=== PATIENT | male | born 1930 | race Caucasian/White ===

== ENCOUNTER 2017-01-03 17:28 | Outpatient (CLI) | payer MEDICARE, BC ==
[2017-01-03 18:19] LABS: Hematocrit 43.4 % (42.0-52.0); Red Blood Cell (RBC) Count 4.52 mill/uL (4.70-6.10); White Blood Cell (WBC) Count 5.6 thou/uL (4.8-10.8)
[2017-01-03 18:27] LABS: Prothrombin Time 16.7 SEC (12.0-14.7)
[2017-01-03 18:28] LABS: PTT 50.4 SEC (22.9-36.1)
[2017-01-03 18:39] LABS: Anion Gap 10 mmol/L (10-20); BUN (Urea Nitrogen) 21 mg/dL (8.4-25.7); Calc. Creatinine Clearance 0 mL/min (70-130); Calcium 9.6 mg/dL (7.8-10.44); Carbon Dioxide 24 mmol/L (23-31); Chloride 107 mmol/L (98-107); Estimated GFR-MDRD 51
== END 2017-01-03 17:29 | disposition home or self-care (01) ==
LOC: LABBT 17:28
PROVIDERS: ATTEND Internal Medicine Cardiovascular Disease
DX: Z01.818 Encounter for other preprocedural examination (principal); I35.0 Nonrheumatic aortic (valve) stenosis
CPT/HCPCS: 80048; 85027; 85610; 85730

== ENCOUNTER 2017-01-05 10:42 | Inpatient (IN) | payer MEDICARE, BC ==
[2017-01-05 11:20] LABS: #Eosinphils 0.1 thou/uL (0.0-0.7); #Lymphocytes 1.1 thou/uL (1.20-3.40); #Monocytes 0.6 thou/uL (0.11-0.59); #Neutrophils 6.3 thou/uL (1.40-6.50); %Basophils 0.2 % (0.0-1.0); %Lymphocytes 13.9 % (21.0-51.0); %Monocytes 6.9 % (0.0-10.0); Hematocrit 44.3 % (42.0-52.0); Mean Platelet Volume 8.2 fL (7.4-10.4); Red Blood Cell (RBC) Count 4.68 mill/uL (4.70-6.10)
[2017-01-05 11:47] LABS: ALT (SGPT) 11 U/L (8-55); AST (SGOT) 13 U/L (5-34); Alkaline Phosphatase 40 U/L (40-150); Anion Gap 14 mmol/L (10-20); BUN (Urea Nitrogen) 27 mg/dL (8.4-25.7); Bilirubin, Total 0.7 mg/dL (0.2-1.2); CK (CPK) 92 U/L (30-200); Calc. Creatinine Clearance 0 mL/min (70-130); Calcium 9.7 mg/dL (7.8-10.44); Carbon Dioxide 21 mmol/L (23-31); Chloride 108 mmol/L (98-107); Estimated GFR-MDRD 46; Globulin 2.8 g/dL (2.4-3.5); Protein, Total 6.8 g/dL (5.8-8.1)
--- NOTE | 2017-01-05 12:14 | RAD ---
PORTABLE CHEST 1 VIEW: Date: 01/05/17 Time: 1043 hours HISTORY: Cough. FINDINGS: Comparison made with exam of 03/02/09. The heart is enlarged. Left-sided pacemaker device remains in place. The aorta is tortuous. The lung s are well expanded without focal areas of consolidation, pneumothorax, delia pulmonary edema, or pl eural effusions. IMPRESSION: No acute process. POS: ELMO
[2017-01-05] MEDS ORDERED: ISOVUE-370 76%-LOCM 1 ML ONE (13:55)
--- NOTE | 2017-01-05 16:09 | CT ---
CTA CHEST WITH 3D VOLUME RENDERING: CLINICAL HISTORY: Cough. Hypoxia. Dyspnea. FINDINGS: No evidence of a focal filling defect of the pulmonary trunk or main pulmonary arteries. There is h eterogeneity of contrast bolus throughout the segmental and subsegmental pulmonary arterial branches , which could obscure distal emboli. Multifocal patchy alveolar opacification is present throughout each lung, involving all pulmonary lobes. There is no evidence of effusion or pneumothorax. Mild prominence of the thoracic lymph nodes are noted. There is diffuse vascular calcification. The aor ta is not reliably assessed on the basis of phase of enhancement. Trace pericardial fluid is presen t. Granulomatous calcifications are seen within the chest and abdomen. IMPRESSION: 1. No large, central pulmonary embolus. 2. Heterogeneity of contrast bolus at the segmental and subsegmental pulmonary branches does limit evaluation distally. 3. Multifocal alveolar consolidation bilaterally, which may be on the basis of atypical pneumonia o r, alternatively, scattered areas of alveolar edema. This could be further discerned with a clinica l exam. Radiographic imaging followup may also be obtained as necessary. POS: ELMO
[2017-01-05] MEDS ORDERED: Azithromycin 500 MG VIAL ONE (16:53)
[2017-01-05 17:14] LABS: Bilirubin Negative (Negative); Blood, Urine Trace (Negative); Glucose, Urine (Dipstick) Negative (Negative); Ketone, Urine Negative (Negative); Nitrite Negative (Negative); Protein, Urine (Dipstick) Negative (Neg-Trace); Urobilinogen 0.2 mg/dL (0.2-1.0)
[2017-01-05 17:16] LABS: Bacteria/HPF None Seen HPF (None Seen); Hyaline Casts/LPF 0-3 HYALINE CAST LPF (0-3 Hyaline); Squamous Epithelial 0-3 HPF (0-3); WBC/HPF 0-3 HPF (0-3)
[2017-01-05 17:21] LABS: Troponin I 0.051 ng/mL (< 0.028)
[2017-01-05] MEDS ORDERED: cefTRIAXone\\ROCEPHIN 1 GM VIAL ONE (18:14)
[2017-01-05] MEDS ORDERED: Acetaminophen 325 MG TAB PO PRN (18:52)
[2017-01-05] MEDS ORDERED: Ondansetron HCl/PF 4 MG/2 ML Vial IVP PRN (18:52)
[2017-01-05] MEDS ORDERED: Ondansetron ODT 4 MG TAB SL PRN (18:52)
[2017-01-05] MEDS ORDERED: Calcium Carbonate 500 MG ChewTAB PO PRN (19:09)
[2017-01-05] MEDS: Atorvastatin Calcium 20 MG TAB PO SCH (20:17)
[2017-01-05] MEDS: Doxazosin Mesylate 4 MG TAB PO SCH (20:17)
[2017-01-05] MEDS: Allopurinol 300 MG TAB PO SCH (20:17)
[2017-01-05] MEDS: Finasteride 5 MG TAB PO SCH (20:17)
[2017-01-05] MEDS: Sodium Chloride 0.9% 1,000 ML IV SCH (20:18)
[2017-01-05] MEDS: HYDROcodone/Acetaminophen 5/325 mg Tablet PO PRN ×2 (20:18→23:30)
[2017-01-05 20:50] VITALS: BMI 41.9
[2017-01-05] MEDS: Benzonatate 100 MG CAP PO PRN (23:32)
[2017-01-06] MEDS: Dabigatran 150 mg Capsule PO SCH ×3 (00:36→20:16)
--- NOTE | 2017-01-06 03:11 | HP ---
CHIEF COMPLAINT: Cough. HISTORY OF PRESENT ILLNESS: This is an 86-year-old pleasant gentleman who had cough for 5 days. Th e patient had also had some dyspnea on exertion. Denies any fever. Denies any history of blood jane ts. Denies any edema. The patient was doing better, but the cough got really bad and hence, he cam e into the hospital for further evaluation and treatment. A CT scan in the ER was done, which showe d multifocal pneumonia. The patient has been admitted for further evaluation and treatment of that. Of note, the patient is going to have an elective cardiac catheterization on the and also he is going to take care of his AV valve at that time. The patient denies any fever. Admits to cough, very little sputum production which is yellowish greenish in color. PAST MEDICAL HISTORY: Significant for hyperlipidemia, hypertension, aortic valve issues and benign prostatic hypertrophy. SOCIAL HISTORY: Does not smoke, drink or do recreational drugs. PAST SURGICAL HISTORY: Significant for bladder stone surgery, cholecystectomy, tonsillectomy, and p acemaker. FAMILY HISTORY: Negative for diabetes and hypertension. ALLERGIES: No known drug allergies. MEDICATIONS: Please see MAR. REVIEW OF SYSTEMS: Significant for no fever, no chills, no headache, no appetite, no hearing loss a nd no latencies. Some shortness of breath when he came in he had room air of 88%. No chest pain, n o diarrhea, dysuria, or polyuria. No memory or mood changes. No neck pain. PHYSICAL EXAMINATION: VITAL SIGNS: Blood pressure is 153/83, respirations 19, temperature 98.2, pulse is 92, right now sa tting 98% on 2 liters. GENERAL: The patient is lying in bed in no apparent distress. HEENT: Atraumatic, normocephalic. Pupils equally round, reactive to light. Extraocular movements intact. Mucous membranes moist. NECK: Supple. No JVD. CHEST: Some bibasilar coarse breath sounds. HEART: S1, S2 normal. No murmurs or gallops. ABDOMEN: Soft, obese. EXTREMITIES: No cyanosis, clubbing, edema. Distal pulses present. NEUROLOGIC: Alert, awake, oriented. No cranial deficits. No sensorimotor deficits. LABORATORY DATA: Potassium is 4.4, creatinine is 1.45. LFTs normal. WBC count is 8, hemoglobin is 14, platelets 166. The patient's CT scan shows multifocal pneumonia, shows no pulmonary embolus, m ultifocal alveolar consolidation, bilateral. ASSESSMENT AND PLAN: 1. Multifocal pneumonia on CT scan with cough. We will do sputum culture, blood culture. IV antib iotics, Rocephin and Zithromax, neb treatments and give the patient some cough suppressants. 2. Cough secondary to pneumonia. We will do symptomatic treatment. 3. Hyperlipidemia. Continue home medications. 4. Hypertension. Continue home medications. 5. History of paroxysmal atrial fibrillation. Pradaxa was stopped by Dr. Villavicencio as the patient is going to go for surgery and the cardiac catheterization on . 6. Acute renal failure. We will gently hydrate the patient and monitor labs. 7. Sequential compression devices for deep venous thrombosis prophylaxis. Please note EKG shows paced rhythm. Status post pacemaker with paced rhythm. I will follow the lab s and do the need for.
[2017-01-06 04:55] LABS: #Lymphocytes 1.2 thou/uL (1.20-3.40); #Monocytes 1.1 thou/uL (0.11-0.59); #Neutrophils 11.5 thou/uL (1.40-6.50); %Basophils 0.1 % (0.0-1.0); %Eosinophils 0.1 % (0.0-10.0); %Monocytes 7.7 % (0.0-10.0); Hematocrit 39.7 % (42.0-52.0); Mean Platelet Volume 8.4 fL (7.4-10.4); Red Blood Cell (RBC) Count 4.17 mill/uL (4.70-6.10); White Blood Cell (WBC) Count 13.8 thou/uL (4.8-10.8)
[2017-01-06 05:12] LABS: Anion Gap 9 mmol/L (10-20); BUN (Urea Nitrogen) 29 mg/dL (8.4-25.7); Calc. Creatinine Clearance 66 mL/min (70-130); Calcium 9.1 mg/dL (7.8-10.44); Carbon Dioxide 25 mmol/L (23-31); Chloride 108 mmol/L (98-107); Estimated GFR-MDRD 44
--- NOTE | 2017-01-06 07:47 | HP ---
CHIEF COMPLAINT: Cough HISTORY OF PRESENT ILLNESS: The patient denies any fever or chills. The patient said he was appare ntly well until 5 days back and he developed this cough. He is going to have cardiac catheterizatio n to be done on by Dr. Villavicencio and so the Pradaxa was stopped, but he developed this cough, whic h progressively got worse and hence came into the hospital for further evaluation and treatment. No fever, no chills. No chest pain. No diarrhea, dysuria, or polyuria. PAST MEDICAL HISTORY: Significant for hyperlipidemia, hypertension, aortic valve issues, BPH. SOCIAL HISTORY: Does not smoke, drink, or do recreational drugs. PAST SURGICAL HISTORY: Bladder stone surgery, cholecystectomy, tonsillectomy, and pacemaker. FAMILY HISTORY: Negative for diabetes and hypertension. ALLERGIES: No known drug allergies. MEDICATIONS: Please see MAR. REVIEW OF SYSTEMS: As mentioned in the HPI, otherwise no fever, no chills, no headache, . No diarrhea, dysuria, or polyuria. No memory or mood changes. PHYSICAL EXAMINATION: VITAL SIGNS: Blood pressure is 150/83, temperature is afebrile, breathing at 19, pulse is 92, satti ng 98% on room air. On 2 L patient was satting 88% on room air. GENERAL: Patient is lying in bed, in no apparent distress. HEENT: Atraumatic and normocephalic. Pupils are equally round and reactive to light. Extraocular movements intact. Mucous membranes are moist. NECK: Supple. No JVD. CHEST: Coarse breath sounds on the bases. HEART: S1 and S2. No murmurs or gallops. ABDOMEN: Soft. EXTREMITIES: No cyanosis, clubbing, or edema. Distal pulses present. NEUROLOGIC: Alert, awake, oriented. No cranial deficits. No sensorimotor deficits. LABORATORY DATA AND DIAGNOSTICS: CT scan shows multifocal pneumonia. Potassium is 4.4, creatinine is 1.45. LFT, normal. WBC count is 8, hemoglobin is 14. BNP is 226. ASSESSMENT AND PLAN: 1. Multifocal pneumonia. We will put the patient on pneumonia protocol, blood cultures, sputum cul tures, flu test, IV antibiotics with Rocephin and Zithromax. Monitor and follow the cultures and op timize the treatment. 2. Hyperlipidemia, stable. Hypertension, stable. Continue home medications. 3. Chronic atrial fibrillation, patient's Pradaxa has been stopped. Patient is status post pacemak er. EKG has paced rhythm as well acute renal failure, possibly secondary to dehydration. We will g ently hydrate the patient and follow creatinine. 4. Sequential compression devices for deep venous thrombosis prophylaxis. I will follow the labs a nd do the need for.
[2017-01-06] MEDS: Nebivolol HCl 5 MG TAB PO SCH (07:55)
[2017-01-06] MEDS: Benzonatate 100 MG CAP PO PRN ×2 (10:28→19:34)
--- NOTE | 2017-01-06 12:10 | PDOC.PN ---
- Subjective Encounter Start Date: 01/06/17 Encounter Start Time: 12:00 Subjective: f/u for bilateral pneumonia noted on CT chest. Feels a little better but -: still with coughing. No fever. No prior hx of pneumonia. Tx with Rocephin -: and Zithromax. - Objective MAR Reviewed: Yes Vital Signs & Weight: Vital Signs (12 hours) Temp Pulse Resp BP Pulse Ox 01/06/17 11:51 93 L 01/06/17 11:46 82 16 01/06/17 11:15 97.8 F 90 20 112/55 L 01/06/17 08:00 98.9 F 88 24 H 01/06/17 07:11 97.7 F 89 20 111/53 L 93 L 01/06/17 04:02 98.9 F 88 24 H 106/52 L 93 L Weight Weight 292 lb 4 oz I&O: 01/05/17 01/06/17 01/07/17 06:59 06:59 06:59 Intake Total 817 240 Balance 817 240 Result Diagrams: 01/06/17 03:51 01/06/17 03:51 Additional Labs: Microbiology 01/05/17 19:55 Nasal swab Influenza Types A,B Direct EIA - Final 01/05/17 19:29 Venous blood - Left Hand Blood Culture - Preliminary Specimen has been received and culture in progress. No Growth to date. 01/05/17 11:06 Venous blood - Left Hand Blood Culture - Preliminary Specimen has been received and culture in progress. No Growth to date. Laboratory Tests 01/05/17 01/05/17 01/05/17 11:06 11:06 11:06 Neutrophils % 78.0 H BUN 27 H Creatinine 1.45 H B-Natriuretic Peptide 261.6 H 01/06/17 03:51 Neutrophils % 83.1 H BUN Creatinine B-Natriuretic Peptide Radiology Reviewed by me: Yes (CT chest - multifocal infiltrates, no PE) EKG Reviewed by me: Yes (Tele - SR in 80's) Phys Exam - Physical Examination Constitutional: NAD HEENT: PERRLA, oral pharynx no lesions Neck: no JVD, supple coarse scattered sounds in bases II/ SANCHO in RUSB Cardiovascular: RRR Gastrointestinal: soft, non-tender, no distention, positive bowel sounds Musculoskeletal: no edema, pulses present Neurological: normal sensation, moves all 4 limbs Psychiatric: A&O x 3 Skin: normal turgor, cap refill <2 seconds Dx/Plan (1) Bilateral pneumonia Code(s): J18.9 - PNEUMONIA, UNSPECIFIED ORGANISM Status: Acute Comment: Bilateral involvement, suspect gm+ cocci, change Rocephin 2gm IV daily, Zithromax 500mg IV daily, Duonebs q4h, antitussive agents (2) 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 valve Code(s): Q23.1 - CONGENITAL INSUFFICIENCY OF AORTIC VALVE Status: Chronic Comment: Plan for cardiac cath 01/10/17 but will have to be postponed until pneumonia clears, resume Pradaxa 150mg BID (3) Chronic anticoagulation Code(s): Z79.01 - SENIOR PROCESS CONTROL TECH (CURRENT) USE OF ANTICOAGULANTS Status: Chronic Comment: See above (4) CKD (chronic kidney disease) stage 3, GFR 30-59 ml/min Code(s): N18.3 - CHRONIC KIDNEY DISEASE, STAGE 3 (MODERATE) Status: Chronic Comment: Avoid nephrotoxic meds and contrast media, repeat creatinine in am (5) Morbid obesity Code(s): E66.01 - MORBID (SEVERE) OBESITY DUE TO EXCESS CALORIES Status: Chronic - Plan continue antibiotics, out of bed/ambulate, DVT proph w/SCDs Stable currently -: Change Rocephin 2gm IV q24h -: Continue Zithromax 500mg IV daily -: Await final blood cx results -: Saline lock IVF's * Convert to inpt status * Resume Pradaxa 150mg BID * AM lab: BMP, CBC
[2017-01-06] MEDS: Sodium Chloride 0.9% 1,000 ML IV SCH (13:17)
[2017-01-06] MEDS ORDERED: guaiFENesin/Dextromethorphan 10 ML UDCUP PO PRN (14:32)
[2017-01-06] MEDS: Azithromycin 500 MG, Admixture Fee 1 EACH in Sodium Chloride 0.9% 250 ML 250 ML IVPB SCH (16:00)
[2017-01-06] MEDS: ADMIXTURE FEE IVPB SCH (17:22)
[2017-01-06] MEDS: CEFTRIAXONE ROCEPHIN IVPB SCH (17:22)
[2017-01-06] MEDS: SODIUM CHLORIDE IVPB SCH (17:22)
[2017-01-06] MEDS ORDERED: cefTRIAXone\\ROCEPHIN 1 GM, Admixture Fee 1 EACH in Sodium Chloride 0.9% 100 ML IVPB SCH (18:00)
--- NOTE | 2017-01-06 19:50 | CON ---
DATE OF CONSULTATION: 01/06/2017 CARDIOLOGY CONSULTATION REASON FOR CONSULTATION: Aortic stenosis. HISTORY OF PRESENT ILLNESS: Mr. Dobbs is a very pleasant 86-year-old white gentleman, a patient of Dr. Robert Villavicencio, who comes to the hospital for increased cough. He had evaluation in the ER and w as found to have multifocal pneumonia, so he was admitted for antibiotics and treatment of this. He states that for the last 5 days he has been noticing increased shortness of breath with exertion as well as cough that has been getting worse, productive of yellow sputum. He has been started on IV antibiotics. He actually is being followed by Dr. Villavicencio for aortic stenosis and was diagnosed with severe aortic stenosis and actually had a heart catheterization planned for this coming week on Sun. He also has a history of atrial fibrillation and he is on anticoagulation for that and this had been started being held today. Cardiology is being consulted for further recommendations in [facility] area. Currently, Mr. Dobbs denies any chest pain, tightness, or pressure. Denies any syncope or presyncope. PAST MEDICAL HISTORY: 1. Hyperlipidemia. 2. Hypertension. 3. Severe aortic stenosis. 4. Benign prostatic hypertrophy. SOCIAL HISTORY: No alcohol, tobacco or drugs. PAST SURGICAL HISTORY: 1. Bladder stone removal. 2. Cholecystectomy. 3. Tonsillectomy. 4. Pacemaker placement. FAMILY HISTORY: Noncontributory. OUTPATIENT MEDICATIONS: Include: 1. Pradaxa. 2. Allopurinol. 3. Lipitor. 4. Bystolic. 5. Multivitamin. 6. Proscar. 7. Doxazosin. ALLERGIES: No known drug allergies. REVIEW OF SYSTEMS: Twelve point review of systems was done and is all negative unless stated in the history of present illness.. PHYSICAL EXAMINATION: VITAL SIGNS: Temperature 98.0, pulse 82, respiration rate 17, satting 92% on 4 liters, blood pressu re 110/54. GENERAL: Awake, alert, oriented x3, in no distress. HEENT: Normocephalic, atraumatic. NECK: Supple. LUNGS: Have reduced breath sounds bilaterally. CARDIOVASCULAR: S1, S2. There is a grade 3/6 systolic murmur mid to late peaking on the right uppe r sternal border related to the rest of the precordium. ABDOMEN: Soft. EXTREMITIES: Trace edema. SKIN: Warm and dry. LABORATORY WORK: Reviewed. CBC with a white count of 13, hemoglobin of 13, hematocrit of 39, and p latelet count of 149. Chemistries with a creatinine of 1.4, increasing to 1.5; BUN of 29, GFR of 44 . Troponin was 0.05 x1. BNP was 261. UA showed trace blood, moderate amount of leukocyte esterase . IMAGING: Chest x-ray showed no acute process. CT of the chest shows bilateral pneumonias. ASSESSMENT AND PLAN: 1. Community-acquired pneumonia. 2. Severe aortic stenosis. PLAN: 1. IV antibiotics per primary team. 2. Plan for heart catheterization is currently on hold due to his acute process at this time. We w ould recommend restarting the Pradaxa to protect him from the stroke in the setting of paroxysmal at rial fibrillation. He will have to have his right and left heart catheterization rescheduled to a l ater date. 3. We will continue to follow.
[2017-01-06] MEDS: Doxazosin Mesylate 4 MG TAB PO SCH (20:16)
[2017-01-06] MEDS: Finasteride 5 MG TAB PO SCH (20:16)
[2017-01-06] MEDS: Atorvastatin Calcium 20 MG TAB PO SCH (20:16)
[2017-01-06] MEDS: Allopurinol 300 MG TAB PO SCH (20:16)
[2017-01-07 05:07] LABS: Hematocrit 38.4 % (42.0-52.0)
[2017-01-07 05:19] LABS: Anion Gap 9 mmol/L (10-20); BUN (Urea Nitrogen) 28 mg/dL (8.4-25.7); Calc. Creatinine Clearance 68 mL/min (70-130); Calcium 9.3 mg/dL (7.8-10.44); Carbon Dioxide 25 mmol/L (23-31); Chloride 108 mmol/L (98-107); Estimated GFR-MDRD 45
[2017-01-07 06:03] LABS: Band 1 % (5-11); Mean Platelet Volume 8.7 fL (7.4-10.4); Neutrophil 80 % (42-75); Red Blood Cell (RBC) Count 4.07 mill/uL (4.70-6.10); White Blood Cell (WBC) Count 9.2 thou/uL (4.8-10.8)
[2017-01-07] MEDS: Dabigatran 150 mg Capsule PO SCH ×2 (09:00→21:16)
[2017-01-07] MEDS: Nebivolol HCl 5 MG TAB PO SCH (09:01)
[2017-01-07] MEDS: Multivitamin W/ Minerals 1 TAB PO SCH (09:01)
--- NOTE | 2017-01-07 10:26 | PDOC.PN ---
- Subjective Encounter Start Date: 01/07/17 Encounter Start Time: 10:24 Patient seen and examined. No new complaints. No overnight events. feels much better. coughing less. No fever or chills. sob on exertion getting worse from baseline lately. No chest pain or palpitation. - Objective MAR Reviewed: Yes Vital Signs & Weight: Vital Signs (12 hours) Temp Pulse Resp BP Pulse Ox 01/07/17 09:08 98.2 F 75 18 128/59 L 93 L 01/07/17 06:47 97 01/07/17 06:44 67 16 01/07/17 04:00 98.4 F 90 18 129/62 94 L 01/07/17 00:00 98.6 F 90 18 107/51 L 94 L 01/06/17 23:16 93 L Weight Weight 293 lb I&O: 01/06/17 01/07/17 01/08/17 06:59 06:59 06:59 Intake Total 1750 Output Total 620 Balance 1130 Result Diagrams: 01/07/17 04:12 01/07/17 04:12 Radiology Reviewed by me: Yes Phys Exam - Physical Examination Constitutional: NAD HEENT: sclera anicteric Neck: supple Respiratory: no wheezing, no rales systolic murmur present Cardiovascular: irregular Gastrointestinal: soft Musculoskeletal: no edema Neurological: non-focal, moves all 4 limbs Psychiatric: normal affect, A&O x 3 Skin: no rash Dx/Plan (1) Severe aortic stenosis Code(s): I35.0 - NONRHEUMATIC AORTIC (VALVE) STENOSIS Status: Chronic (2) CAD (coronary artery disease) Code(s): I25.10 - ATHSCL HEART DISEASE OF [place] CORONARY ARTERY W/O ANG PCTRS Status: Chronic (3) Chronic a-fib Code(s): I48.2 - CHRONIC ATRIAL FIBRILLATION Status: Chronic (4) Bilateral pneumonia Code(s): J18.9 - PNEUMONIA, UNSPECIFIED ORGANISM Status: Acute Comment: Bilateral involvement, suspect gm+ cocci, change Rocephin 2gm IV daily, Zithromax 500mg IV daily, Duonebs q4h, antitussive agents (5) CKD (chronic kidney disease) stage 3, GFR 30-59 ml/min Code(s): N18.3 - CHRONIC KIDNEY DISEASE, STAGE 3 (MODERATE) Status: Chronic Comment: Avoid nephrotoxic meds and contrast media, repeat creatinine in am (6) Chronic anticoagulation Code(s): Z79.01 - REAGENT TENDER HELPER (CURRENT) USE OF ANTICOAGULANTS Status: Chronic Comment: See above (7) Morbid obesity Code(s): E66.01 - MORBID (SEVERE) OBESITY DUE TO EXCESS CALORIES Status: Chronic - Plan cont current plan of care, continue antibiotics, out of bed/ambulate, DVT proph w/SCDs * . continue rocephin and zithromax feeling better. WBC count better No fever cultures negative AM labs. cardiac cath postponed and restarted on pradaxa Appreciate cardio input. continue Tele monitoring Dc home in 24 hrs if stable.
[2017-01-07 11:16] LABS: #Lymphocytes 0.8 thou/uL (1.20-3.40); #Monocytes 0.7 thou/uL (0.11-0.59); #Neutrophils 6.8 thou/uL (1.40-6.50); %Basophils 0.1 % (0.0-1.0); %Eosinophils 0.2 % (0.0-10.0); %Monocytes 8.5 % (0.0-10.0); Hematocrit 37.7 % (42.0-52.0); Mean Platelet Volume 8.3 fL (7.4-10.4); Red Blood Cell (RBC) Count 3.95 mill/uL (4.70-6.10); White Blood Cell (WBC) Count 8.3 thou/uL (4.8-10.8)
[2017-01-07] MEDS: Azithromycin 500 MG, Admixture Fee 1 EACH in Sodium Chloride 0.9% 250 ML 250 ML IVPB SCH (16:38)
--- NOTE | 2017-01-07 17:56 | PDOC.CTH ---
Cardiology Progress Note - Subjective He is doing much better. Breathing is improved. On room air now. - Objective Vital Signs Temp Pulse Resp BP BP Pulse Ox 01/07/17 15:15 98.2 F 82 28 H 112/65 91 L 01/07/17 14:29 59 L 16 01/07/17 12:20 97.8 F 87 28 H 114/58 L 92 L 01/07/17 10:46 89 16 01/07/17 09:08 98.2 F 75 18 128/59 L 93 L 01/07/17 09:05 98.2 F 89 16 93 L 01/07/17 06:47 97 01/07/17 06:44 67 16 Weight 293 lb 01/06/17 01/07/17 01/08/17 06:59 06:59 06:59 Intake Total 1750 Output Total 620 Balance 1130 - Physical Examination General/Neuro: alert & oriented x3, NAD Neck: no JVD present Lungs: unlabored respirations Heart: RRR Abdomen: NT/ND Extremities: other: (no edema.) - Telemetry Telemetry Rhythm: NSR - Labs Result Diagrams: 01/07/17 10:56 01/07/17 04:12 Troponin/CKMB CK-MB (CK-2) 1.9 ng/mL (0-6.6) 01/05/17 11:06 Troponin I 0.051 ng/mL (< 0.028) H 01/05/17 11:06 - Assessment/Plan 1. Pneumonia 2. Severe 3. Paroxysmal Afib. PLAn: - Continue therapies for pneumonia. - Continue Pradaxa for stroke prophylaxis. On BB. - Would hold off on doing any invasive procedure for now until better from pneumonia stand point.
[2017-01-07] MEDS: Benzonatate 100 MG CAP PO PRN (17:57)
[2017-01-07] MEDS: HYDROcodone/Acetaminophen 5/325 mg Tablet PO PRN (17:57)
[2017-01-07] MEDS: Guaifenesin DM 100-10/5 ML UDCUP PO PRN (18:17)
[2017-01-07] MEDS: ADMIXTURE FEE IVPB SCH (18:18)
[2017-01-07] MEDS: CEFTRIAXONE ROCEPHIN IVPB SCH (18:18)
[2017-01-07] MEDS: SODIUM CHLORIDE IVPB SCH (18:18)
[2017-01-07] MEDS: Doxazosin Mesylate 4 MG TAB PO SCH (21:16)
[2017-01-07] MEDS: Allopurinol 300 MG TAB PO SCH (21:17)
[2017-01-07] MEDS: Atorvastatin Calcium 20 MG TAB PO SCH (21:17)
[2017-01-07] MEDS: Finasteride 5 MG TAB PO SCH (21:17)
[2017-01-08] MEDS: Guaifenesin DM 100-10/5 ML UDCUP PO PRN (00:03)
[2017-01-08 06:32] LABS: Anion Gap 10 mmol/L (10-20); BUN (Urea Nitrogen) 24 mg/dL (8.4-25.7); Calc. Creatinine Clearance 79 mL/min (70-130); Calcium 9.4 mg/dL (7.8-10.44); Carbon Dioxide 25 mmol/L (23-31); Chloride 107 mmol/L (98-107); Estimated GFR-MDRD 54
[2017-01-08] MEDS ORDERED: Diprivan 0 ML ONE (07:14)
[2017-01-08 08:43] VITALS: BP 121/57; TEMP 98.2
[2017-01-08] MEDS: Dabigatran 150 mg Capsule PO SCH (08:44)
[2017-01-08] MEDS: Nebivolol HCl 5 MG TAB PO SCH (08:44)
[2017-01-08] MEDS: Multivitamin W/ Minerals 1 TAB PO SCH (08:44)
[2017-01-08] MEDS ORDERED: Furosemide 40 MG/4 ML VIAL SLOW IVP SCH (09:15)
--- NOTE | 2017-01-08 09:32 | PRG ---
DATE OF SERVICE: 01/08/2017 Mr. Dobbs says he is feeling better. He says he is still coughing, although it has improved. He sa id he had a yellow productive cough previously. He has no fever. PHYSICAL EXAMINATION: VITAL SIGNS: Blood pressure 121/57, pulse is 90, it is regular. LUNGS: Clear. CARDIAC: Normal S1, normal S2. ABDOMEN: Soft, nontender. EXTREMITIES: There is only mild edema. ASSESSMENT: 1. Multifocal infiltrates, probably pneumonia, but always concern this could be heart failure. 2. Aortic stenosis, severe. PLAN: 1. We will give him a single dose of Lasix. 2. Continue antibiotics. 3. We will continue to follow with you. Ultimately, will need a cardiac catheterization and a miles scutaneous aortic valve replacement is the ultimate goal.
--- NOTE | 2017-01-08 10:00 | PDOC.PN ---
- Subjective Encounter Start Date: 01/08/17 Encounter Start Time: 09:58 Patient seen and examined. No new complaints. No overnight events. cough better No chest pain wants to go home. - Objective MAR Reviewed: Yes Vital Signs & Weight: Vital Signs (12 hours) Temp Pulse Resp BP Pulse Ox 01/08/17 08:00 98.2 F 90 20 121/57 L 92 L 01/08/17 07:36 92 L 01/08/17 07:34 88 18 92 L 01/08/17 04:00 98.1 F 85 18 106/54 L 85 L 01/08/17 00:00 98.2 F 73 20 122/59 L 97 01/07/17 22:56 95 Weight Weight 292 lb 9.6 oz I&O: 01/07/17 01/08/17 01/09/17 06:59 06:59 06:59 Intake Total 1750 1300 Output Total 620 800 Balance 1130 500 Result Diagrams: 01/07/17 10:56 01/08/17 05:24 Phys Exam - Physical Examination Constitutional: NAD HEENT: sclera anicteric Neck: supple Respiratory: no wheezing, no rales Cardiovascular: RRR systolic murmur present Gastrointestinal: soft Musculoskeletal: no edema Neurological: non-focal, moves all 4 limbs Skin: no rash Dx/Plan (1) Severe aortic stenosis Code(s): I35.0 - NONRHEUMATIC AORTIC (VALVE) STENOSIS Status: Chronic (2) CAD (coronary artery disease) Code(s): I25.10 - ATHSCL HEART DISEASE OF [place] CORONARY ARTERY W/O ANG PCTRS Status: Chronic (3) Chronic a-fib Code(s): I48.2 - CHRONIC ATRIAL FIBRILLATION Status: Chronic (4) Bilateral pneumonia Code(s): J18.9 - PNEUMONIA, UNSPECIFIED ORGANISM Status: Acute Comment: Bilateral involvement, suspect gm+ cocci, change Rocephin 2gm IV daily, Zithromax 500mg IV daily, Duonebs q4h, antitussive agents (5) CKD (chronic kidney disease) stage 3, GFR 30-59 ml/min Code(s): N18.3 - CHRONIC KIDNEY DISEASE, STAGE 3 (MODERATE) Status: Chronic Comment: Avoid nephrotoxic meds and contrast media, repeat creatinine in am (6) Chronic anticoagulation Code(s): Z79.01 - NUT SHELLER (CURRENT) USE OF ANTICOAGULANTS Status: Chronic Comment: See above (7) Morbid obesity Code(s): E66.01 - MORBID (SEVERE) OBESITY DUE TO EXCESS CALORIES Status: Chronic - Plan * . DC home today Levaquin for 5 more days. f/u with PCP in one week.
--- NOTE | 2017-01-08 19:51 | DIS ---
DATE OF ADMISSION: 01/05/2017 DATE OF DISCHARGE: 01/08/2017 DISCHARGE DIAGNOSES: Multifocal pneumonia, hyperlipidemia, chronic atrial fibrillation, severe aort ic stenosis, coronary artery disease, chronic kidney disease stage 3, chronic anticoagulation, and m orbid obesity. CONSULTATIONS: Dr. Rodriguez from Cardiology and Dr. Villavicencio. PROCEDURES: None. HOSPITAL COURSE: This is an 86-year-old male, who was admitted with history of coronary artery dise ase and chronic atrial fibrillation, who came to the hospital with cough and was found to have multi focal pneumonia and was started on antibiotics with significant improvement. The patient will be di scharged on levofloxacin. The patient was also have a heart catheterization, which was postponed du e to the acute process, and Cardiology also evaluated and he was deemed appropriate to discharge jaime e with followup as outpatient. DISCHARGE MEDICATIONS: Pradaxa 150 p.o. b.i.d., allopurinol 300 mg at bedtime, Lipitor p.o. a t bedtime, and Bystolic. Proscar 5 mg p.o. at bedtime, Levaquin 750 mg daily for 5 more days, Pradaxa 150 p.o. b.i.d. CONDITION ON DISCHARGE: Stable. DISCHARGE DISPOSITION: To home. DISCHARGE INSTRUCTIONS: Follow up with primary care physician in 1 week. Follow up with Cardiology in 1 to 2 weeks. If no significant improvement in shortness of breath, the patient might need to s tart on some Lasix also, Cardiology is aware.
== END 2017-01-08 11:47 | disposition home or self-care (01) | DRG 194 ==
LOC: ERS 10:42 → 2SW 17:00 → OBSVTOIN 01-06 12:07 → 2NO 01-06 13:20
PROVIDERS: ADMIT Internal Medicine; ATTEND Internal Medicine
DX: J18.9 Pneumonia, unspecified organism (principal); N17.9 Acute kidney failure, unspecified; I48.0 Paroxysmal atrial fibrillation; Z68.41 Body mass index [BMI] 40.0-44.9, adult; E86.0 Dehydration; I35.0 Nonrheumatic aortic (valve) stenosis; I12.9 Hypertensive chronic kidney disease with stage 1 through stage 4 chronic kidney disease, or unspecified chronic kidney disease; E78.5 Hyperlipidemia, unspecified; Z95.2 Presence of prosthetic heart valve; E66.01 Morbid (severe) obesity due to excess calories; N18.3 Chronic kidney disease, stage 3 (moderate); Z95.0 Presence of cardiac pacemaker; Z79.01 Long term (current) use of anticoagulants
CPT/HCPCS: 36415; 71010; 71275; 80048; 80053; 81003; 81015; 82550; 82553; 83880; 84484; 85007; 85025; 85027; 87040; 87070; 87205; 93005; 94640; 96365; 96374; A4216; J0456; J0696; J1940; J2704; J7050; J7620

== ENCOUNTER 2017-06-26 09:19 | Day surgery (SDC) | payer MEDICARE, BC ==
[2017-06-19 13:40] VITALS: BMI 42.3
[2017-06-26] MEDS ORDERED: CEFAZOLIN/Water 2 GM/20 ML SYRINGE SLOW IVP SCH (10:15)
[2017-06-26] MEDS ORDERED: Iothalamate Meglumine 60% 50 ML VIAL FS ONE (11:38)
[2017-06-26] MEDS ORDERED: CEFAZOLIN/Water 2 GM/20 ML SYRINGE ONE (11:46)
[2017-06-26] MEDS ORDERED: PROPOFOL 200 MG/20 ML VIAL ONE (13:20)
--- NOTE | 2017-06-26 15:12 | OP ---
DATE OF PROCEDURE: 06/26/2017 PREOPERATIVE DIAGNOSIS: Bladder tumor. POSTOPERATIVE DIAGNOSIS: Bladder tumor. PROCEDURES: Transurethral resection of bladder tumor measuring 2-3 cm and a smaller tumor measuring less than a cm, as well as bladder biopsies, fulguration and mitomycin instillation. SURGEON: Priya Morris MD ANESTHESIA: General with laryngeal mask airway. FINDINGS: Adequate resection of an anterior dome tumor as well as a much smaller superficial tumor next to the right UO. No complications. Specimens were bladder biopsies, which were right and left wall, posterior wall, trigone and dome, as well as the bladder tumor next to the right UO and finally the bladder tumor at the dome, which included deep tissue, so a base was not taken separately, DRAIN: 18-Lao Mckeon, clamped at the end of the case. ESTIMATED BLOOD LOSS: Minimal. INDICATIONS: The patient is an 86-year-old gentleman, who was found to have what appeared to be a superficial bladder tumor, but had significant heart issues and underwent an endoscopic vascular replacement of his valve and he did very well and was cleared for resection of his bladder tumor. DESCRIPTION OF PROCEDURE: The patient was brought into the room by Anesthesia, placed on the table in supine position. After receiving general anesthetic, legs were placed in lithotomy position and his perineum was prepped and draped in sterile fashion. Using a 22-Lao cystoscope and a 30-degree lens, urethra was traversed and the bladder inspected. The UO's were noted and there was a small superficial appearing tumor medial to the right UO and then there was the known dome tumor with some papillary components that measured between 2 and 3 cm. A 70-degree lens was used to ensure no other lesions were noted, and then the cold cup biopsy was used to obtain the biopsies and the random spots, as well as remove the bladder tumor next to the right UO. Once these were performed then the resectoscope was placed in and all of the biopsy sites were then fulgurated, taking care not to get too close to the UO. I did not feel a stent was needed at this time as the orifice itself was not affected by the cautery and we stayed medial to it. Then, attention was turned to the anterior dome, where pressure was required the entire time for both adequately resecting and fulgurating it. Muscle was easily seen as well as a very small amount of fat and the tumor was elicked out and then the base was fulgurated with a loop with a decompressed bladder and no bleeding was noted other than near the prostate. The bladder neck was then further fulgurated. The resectoscope was removed and then an 18-Lao Mckeon was placed to further drain all the bladder contents before 40 mg of mitomycin was instilled and clamped. It would be indwelling for the next hour and drained in the PACU. KIND
[2017-06-26] MEDS ORDERED: B & O ONE (16:06)
== END 2017-06-26 19:13 | disposition home or self-care (01) ==
LOC: SDC 09:19
PROVIDERS: ATTEND Urology
PROC: 0TBB8ZX Excision of Bladder, Via Natural or Artificial Opening Endoscopic, Diagnostic (ICD-10-PCS; principal; 2017-06-26)
PROC: 0TBB8ZX Excision of Bladder, Via Natural or Artificial Opening Endoscopic, Diagnostic (ICD-10-PCS; 2017-06-26)
DX: C67.1 Malignant neoplasm of dome of bladder (principal); I48.0 Paroxysmal atrial fibrillation; I25.10 Atherosclerotic heart disease of native coronary artery without angina pectoris; G47.33 Obstructive sleep apnea (adult) (pediatric); E78.00 Pure hypercholesterolemia, unspecified; N40.1 Benign prostatic hyperplasia with lower urinary tract symptoms; R33.8 Other retention of urine; I10 Essential (primary) hypertension; M10.9 Gout, unspecified; Z86.73 Personal history of transient ischemic attack (TIA), and cerebral infarction without residual deficits; Z87.891 Personal history of nicotine dependence; Z79.01 Long term (current) use of anticoagulants; Z79.82 Long term (current) use of aspirin; Z79.899 Other long term (current) drug therapy; Z95.0 Presence of cardiac pacemaker; Z98.890 Other specified postprocedural states; Z99.89 Dependence on other enabling machines and devices
CPT/HCPCS: 52204; 52235; 88305; J9280; J2704; J7050; Q9961

== ENCOUNTER 2017-07-01 10:47 | Emergency (ER) | payer MEDICARE, BC ==
[2017-07-01 12:39] LABS: Bilirubin Negative (Negative); Blood, Urine Large (Negative); Clarity CLOUDY (Clear); Glucose, Urine (Dipstick) Negative (Negative); Leukocyte Small (Negative); Nitrite Negative (Negative); Protein, Urine (Dipstick) Trace mg/dL (Neg-Trace); Specific Gravity, Urine 1.011 (1.002-1.036); Urobilinogen 0.2 mg/dL (0.2-1.0); pH, Urine 6.5 (5.0-9.0)
[2017-07-01 12:46] LABS: Bacteria/HPF None Seen HPF (None Seen); Hyaline Casts/LPF 0-3 HYALINE CAST LPF (0-3 Hyaline); Pathc Cast-AUWi Flag 0.43 (0-2.49); RBC/HPF GREATER THAN 50-TNTC HPF (0-3); Squamous Epithelial None Seen HPF (0-3); WBC/HPF 0-3 HPF (0-3)
[2017-07-01 12:56] LABS: #Eosinphils 0.2 thou/uL (0.0-0.7); #Monocytes 0.4 thou/uL (0.11-0.59); #Neutrophils 2.6 thou/uL (1.40-6.50); %Basophils 0.6 % (0.0-1.0); %Eosinophils 5.6 % (0.0-10.0); %Lymphocytes 23.5 % (21.0-51.0); %Neutrophils 61.2 % (42.0-75.0); Hemoglobin 12.4 g/dL (14.0-18.0); Mean Corpuscular HGB CONC 34.3 g/dL (32.0-36.0); Mean Corpuscular Hemoglobin 32.2 pg (27.0-31.0); Mean Corpuscular Volume 93.8 fl (80.0-94.0); Mean Platelet Volume 7.7 fL (7.4-10.4); PLT Morphology Comment Appears Decreased; Platelet Count 110 thou/uL (130-400); RBC Distribution Width 13.7 % (11.5-14.5); Red Blood Cell (RBC) Count 3.85 mill/uL (4.70-6.10); White Blood Cell (WBC) Count 4.2 thou/uL (4.8-10.8)
[2017-07-01 13:04] LABS: Anion Gap 10 mmol/L (10-20); BUN (Urea Nitrogen) 30 mg/dL (8.4-25.7); Calc. Creatinine Clearance 0 mL/min (70-130); Calcium 9.4 mg/dL (7.8-10.44); Carbon Dioxide 26 mmol/L (23-31); Chloride 106 mmol/L (98-107); Estimated GFR-MDRD 38; Glucose 105 mg/dL (83-110); Potassium 4.9 mmol/L (3.5-5.1); Sodium 137 mmol/L (136-145)
--- NOTE | 2017-07-01 17:21 | CON ---
DATE OF CONSULTATION: 07/01/2017 HISTORY OF PRESENT ILLNESS: This is an 86-year-old white male, who 5 days ago underwent a transureth ral resection of bladder tumor. I think initially had trouble urinating in the first day or so and h ad a catheter placed and he was supposed to remove this catheter tomorrow. However, last night and t meliton he was noticing decreasing amounts of drainage into his bag and then no drainage in the bag and he was started to urinate around the catheter. Also the urine had become bloody. No fevers, no chil ls. He is asked to come into the emergency center as it is Sunday and the offices are closed. I delaney ked to the emergency room resident, who called me about him and he said they had hand irrigated some clots, but the urine was still somewhat bloody, at which point I asked him to look at placing a large r catheter. I came in after that and examined him and his urine at that point was clear, so he does have a small caliber catheter 16 Ukrainian, but it is draining clear urine in the tubing and for this re ason, I do not think that his catheter needs to be exchanged. His testicles are descended. There ar e no masses, no tenderness. His abdomen is soft and nontender. His bladder is not distended. So he had gross hematuria, probably had some small clots and one of them locked up his catheter and appear s that resolved. He will go with the same instructions that Dr. Morris gave him, which is to remove his catheter tomorrow morning if urine is clear. If the urine is not clear, he will contact Dr. Orona er. His pathology is benign on review of his records.
== END 2017-07-01 14:16 | disposition home or self-care (01) ==
LOC: ERS 10:47
DX: T83.018A Breakdown (mechanical) of other urinary catheter, initial encounter (principal); R31.9 Hematuria, unspecified; Z86.73 Personal history of transient ischemic attack (TIA), and cerebral infarction without residual deficits; E78.5 Hyperlipidemia, unspecified; I10 Essential (primary) hypertension; Z79.899 Other long term (current) drug therapy; Z79.82 Long term (current) use of aspirin
CPT/HCPCS: 36415; 80048; 81003; 81015; 85025; 87086; 99283

== ENCOUNTER 2017-07-16 11:19 | Outpatient (CLI) | payer MEDICARE, BC ==
[2017-07-16 13:00] LABS: Hemoglobin 11.8 g/dL (14.0-18.0); Mean Corpuscular HGB CONC 33.8 g/dL (32.0-36.0); Mean Corpuscular Hemoglobin 32.1 pg (27.0-31.0); Mean Corpuscular Volume 94.9 fl (80.0-94.0); Mean Platelet Volume 8.5 fL (7.4-10.4); Platelet Count 106 thou/uL (130-400); RBC Distribution Width 13.7 % (11.5-14.5); Red Blood Cell (RBC) Count 3.68 mill/uL (4.70-6.10); White Blood Cell (WBC) Count 4.7 thou/uL (4.8-10.8)
[2017-07-16 13:41] LABS: Anion Gap 14 mmol/L (10-20); BUN (Urea Nitrogen) 32 mg/dL (8.4-25.7); Calc. Creatinine Clearance 0 mL/min (70-130); Calcium 9.7 mg/dL (7.8-10.44); Carbon Dioxide 21 mmol/L (23-31); Chloride 109 mmol/L (98-107); Estimated GFR-MDRD 44; Glucose 117 mg/dL (83-110); Potassium 4.9 mmol/L (3.5-5.1); Sodium 139 mmol/L (136-145)
== END 2017-07-16 11:20 | disposition home or self-care (01) ==
LOC: LABBT 11:19
PROVIDERS: ATTEND Urology
DX: Z01.812 Encounter for preprocedural laboratory examination (principal); N40.0 Benign prostatic hyperplasia without lower urinary tract symptoms; N20.1 Calculus of ureter; N48.1 Balanitis
CPT/HCPCS: 80048; 85027

== ENCOUNTER 2017-07-24 06:25 | Day surgery (SDC) | payer MEDICARE, BC ==
[2017-07-16 11:45] VITALS: BMI 42.3
[2017-07-24] MEDS ORDERED: Fentanyl 250 MCG/5 ML VIAL ONE (06:53)
[2017-07-24] MEDS ORDERED: Levofloxacin 500 mg/D5W 100 ml Premix Bag ONE (06:54)
[2017-07-24] MEDS ORDERED: Dexamethasone 10 MG/ML VIAL SLOW IVP ONE (07:00)
[2017-07-24] MEDS ORDERED: Furosemide 20 MG/2 ML VIAL ONE (07:07)
[2017-07-24] MEDS ORDERED: B & O ONE (07:07)
[2017-07-24] MEDS ORDERED: Lidocaine 1% (PF) 30 ML VIAL ONE (07:48)
[2017-07-24] MEDS ORDERED: Bupivacaine 0.25% HCL 30 ML VIAL ONE (07:48)
[2017-07-24] MEDS ORDERED: Bacitracin Zinc Ointment 30 gm TUBE ONE (07:48)
[2017-07-24] MEDS ORDERED: Fentanyl 100 MCG/2 ML VIAL ONE (10:48)
--- NOTE | 2017-07-24 12:49 | OP ---
DATE OF SERVICE: 07/24/2017 PREOPERATIVE DIAGNOSES: Benign prostatic hypertrophy, prior retention and clot retention as well as balanitis. POSTOPERATIVE DIAGNOSES: Benign prostatic hypertrophy prior retention and clot retention as well as balanitis. PROCEDURE: Penile laser vaporization of the prostate with enucleation of the lateral lobes using [phone] joules as well as circumcision. SURGEON: Priya Morris M.D. ANESTHESIA: General with endotracheal tube as well as penile block using 10 mL of Marcaine. COMPLICATIONS: No complications. SPECIMENS: Prostate and the foreskin. ESTIMATED BLOOD LOSS: Blood loss was minimal. INDICATIONS: The patient is an 86-year-old male who recently underwent transurethral resection of bladder tumor. He had significant postoperative complications related to his prostate and is ready to proceed with definitive therapy for his BPH. He also has intermittent balanitis and requested a circumcision. TECHNIQUE: The patient was brought in the room by Anesthesia, placed on the table in supine position. After general anesthetic, his legs were placed in lithotomy position and his perineum was prepped and draped in sterile fashion. Using a 22.5 Serbian cystoscope and 30-degree lens the urethra was traversed and the bladder inspected. The left ureteral orifice was easily identified. The right was noted given the elevation during excretion and contraction after, but the exact position of the orifice was never definitively noted. Care was taken to stay away from this region throughout the case. Power of 80 was used at the bladder neck and the power level of 180 was used at the mid gland. The lateral lobes, especially the right were more obstructing and so these were enucleated and chips ensured to be evacuated. A total of [phone] joules were used. When the scope was removed a good stream was noted. Scope was put back in. A small amount of bleeding was noted on the right side, so a little coag was used in one spot. Otherwise with a relatively decompressed bladder there was minimal bleeding, and a Mckeon catheter was placed and plugged and then the patient was then transferred to an OR suite. He was laid supine on the table and then prepped and draped in sterile fashion. 10 mL Marcaine had been used for a penile block, 2 circumferential incisions were made, 1 at the foreskin reduced at the level of the mendzoa, the other proximal to the mendoza with the foreskin retracted approximately 5 mL. This excess skin was then sharply excised. Hemostasis was ensured and then the skin was reapproximated with 3-0 and 4-0 chromics in interrupted fashion. Bacitracin and a sterile dressing and a wrap were applied. The patient tolerated the procedure well and was then awakened and transferred to PACU in stable condition. BREANNE
[2017-07-24] MEDS ORDERED: Lidocaine 1% PF 5 ML VIAL ONE (13:29)
[2017-07-24] MEDS ORDERED: Dexamethasone 20 MG/5 ML VIAL ONE (13:29)
[2017-07-24] MEDS ORDERED: PROPOFOL 200 MG/20 ML VIAL ONE (13:29)
== END 2017-07-24 12:37 | disposition home or self-care (01) ==
LOC: SDC 06:25
PROVIDERS: ATTEND Urology
PROC: 0V507ZZ Destruction of Prostate, Via Natural or Artificial Opening (ICD-10-PCS; principal; 2017-07-24)
PROC: 0VTTXZZ Resection of Prepuce, External Approach (ICD-10-PCS; 2017-07-24)
DX: N40.1 Benign prostatic hyperplasia with lower urinary tract symptoms (principal); R33.9 Retention of urine, unspecified; N48.1 Balanitis; I48.0 Paroxysmal atrial fibrillation; I25.10 Atherosclerotic heart disease of native coronary artery without angina pectoris; G47.33 Obstructive sleep apnea (adult) (pediatric); I10 Essential (primary) hypertension; F17.210 Nicotine dependence, cigarettes, uncomplicated; Z98.890 Other specified postprocedural states; Z86.73 Personal history of transient ischemic attack (TIA), and cerebral infarction without residual deficits; Z99.89 Dependence on other enabling machines and devices; Z79.82 Long term (current) use of aspirin; Z79.899 Other long term (current) drug therapy
CPT/HCPCS: 88304; 88305; 96374; J1100; J1940; J1956; J2001; J3010; S0020

== ENCOUNTER 2017-09-18 01:06 | Emergency (ER) | payer MEDICARE, BC ==
[2017-09-18 02:23] LABS: #Eosinphils 0.1 thou/uL (0.0-0.7); #Lymphocytes 0.6 thou/uL (1.20-3.40); #Monocytes 0.4 thou/uL (0.11-0.59); #Neutrophils 3.3 thou/uL (1.40-6.50); %Basophils 0.4 % (0.0-1.0); %Monocytes 9.8 % (0.0-10.0); %Neutrophils 74.8 % (42.0-75.0); Hemoglobin 11.7 g/dL (14.0-18.0); Mean Corpuscular HGB CONC 33.8 g/dL (32.0-36.0); Mean Corpuscular Hemoglobin 31.8 pg (27.0-31.0); Mean Corpuscular Volume 94.1 fL (78.0-98.0); Platelet Count 111 thou/uL (130-400); RBC Distribution Width 13.6 % (11.5-14.5); Red Blood Cell (RBC) Count 3.68 mill/uL (4.70-6.10); White Blood Cell (WBC) Count 4.4 thou/uL (4.8-10.8)
[2017-09-18 03:02] LABS: ALT (SGPT) 9 U/L (8-55); AST (SGOT) 10 U/L (5-34); Albumin 3.6 g/dL (3.4-4.8); Alkaline Phosphatase 40 U/L (40-150); Anion Gap 9 mmol/L (10-20); BUN (Urea Nitrogen) 28 mg/dL (8.4-25.7); Bilirubin, Total 0.5 mg/dL (0.2-1.2); Calc. Creatinine Clearance 0 mL/min (70-130); Calcium 9.4 mg/dL (7.8-10.44); Carbon Dioxide 25 mmol/L (23-31); Chloride 109 mmol/L (98-107); Estimated GFR-MDRD 40; Glucose 144 mg/dL (83-110); Potassium 4.1 mmol/L (3.5-5.1); Protein, Total 5.6 g/dL (5.8-8.1); Sodium 139 mmol/L (136-145)
[2017-09-18 03:29] LABS: INR-International Normal Ratio 1.1; Prothrombin Time 14.3 SEC (12.0-14.7)
[2017-09-18 03:30] LABS: PTT 30.3 SEC (22.9-36.1)
--- NOTE | 2017-09-18 10:18 | CT ---
PRELIMINARY REPORT/[facility]/EMERGENTY AFTER-HOURS PROCEDURE Findings discussed with ALVA BOYD MD at time of interpretation. Initial Report created on 09/18/2017 5:12 AM Central Time ([place] & [place]) CT Abdomen and Pelvis With Intravenous Contrast CLINICAL HISTORY: 86 years old, male; Signs and symptoms; Other: Hematoma; Prior surgery; Surgery date: Postoperative ( 0-2 days); Patient HX: Er 4; Retroperitoneal hematoma; Patient had a stent to relieve ischemia to r k nee at 8 am today; Reports pain at l inguinal region where incision for stent placement was initially made. Surgical history of cholecystectomy; Additional info: only 60 ml of iv contrast used due to low gfr TECHNIQUE: Axial computed tomography images of the abdomen and pelvis with intravenous contrast. Coronal reforma tted images were created and reviewed. COMPARISON: No relevant prior studies available. FINDINGS: Lower thorax: No acute findings. ABDOMEN: Liver: Normal. No mass. Gallbladder and bile ducts: Prior cholecystectomy. Pancreas: Normal. No ductal dilation. Spleen: Normal. No splenomegaly. Adrenals: Normal. No mass. Kidneys and ureters: Nonobstructive nephrolithiasis versus early contrast excretion in the kidneys bi laterally. No obstructive uropathy. Chronic medical renal disease. Nonobstructive nephrolithiasis lef t kidney. Stomach and bowel: Colonic diverticulosis. No diverticulitis. No bowel wall thickening or intestinal obstruction. Appendix: Normal appendix. PELVIS: Bladder: Unremarkable as visualized. Reproductive: There is what appears to be a TURP defect in the prostate; however, is displaced to the right by approximately 4 cm area of masslike thickening of the left half of the prostate. ABDOMEN and PELVIS: Intraperitoneal space: Normal. No free air. No significant fluid collection. Bones/joints: No acute fracture. No dislocation. Soft tissues: 7 cm hematoma with surrounding contusion in the deep subcutaneous tissue of the left gr oin. No extravasation of contrast on venous phase images to indicate brisk active hemorrhage. No pseu doaneurysm. Vasculature: Chronic postsurgical change of the aortic root. Lymph nodes: Normal. No enlarged lymph nodes. IMPRESSION: 1. 7 cm hematoma with surrounding contusion in the deep subcutaneous tissue of the left groin. No ext ravasation of contrast on venous phase images to indicate brisk active hemorrhage. No pseudoaneurysm. 2. There is what appears to be a TURP defect in the prostate; however, this is displaced to the right by approximately 4 cm area of mass like thickening of the left half of the prostate. Correlate for h istory of prostatectomy. This could be bladder wall hematoma or neoplasm or could be a prostate mass or hematoma. Correlate with history and prior imaging. Thank you for allowing us to participate in the care of your patient. Dictated and Authenticated by: Luis M Elizabeth MD 09/18/2017 5:12 AM Central Time ([place] & [place]) FINAL REPORT EMERGENT AFTER HOURS CT ABDOMEN AND PELVIS WITH IV CONTRAST: DATE: 09/18/17. HISTORY: Retroperitoneal hematoma. Pain in left inguinal region where incision was made. History of cholecys tectomy. COMPARISON: Noncontrast CT abdomen and pelvis on 09/08/07. IMPRESSION: 1. Postsurgical changes related to aortic valve replacement. 2. Tiny pericardial effusion. 3. Cardiac pacemaking leads are partially imaged. 4. Increased density seen within the region of the medullary pyramids bilaterally which may relate t o either nonobstructing renal calculi or possible contrast within each renal collecting system. Ther e is a nonobstructing calculus present on the left. 4. Renal cortical thinning with subcentimeter hypodense lesions involving each kidney, statistically likely representing cysts. There are parapelvic renal cysts present. 5. Post cholecystectomy changes. 6. Colonic diverticulosis. 7. Atherosclerotic vascular calcifications. 8. Defect in the region of the base of the urinary bladder in the region of the prostate gland proba chris related to prior TURP (transurethral resection of prostate) defect. However, this defect is to r ight of midline and is not in the midline as typically expected, and there is mass-like prominence in the left aspect of the prostate gland. Clinical correlation is recommended. Urology consultation i s suggested. 9. Soft tissue defect in the left inguinal region with oval-shaped area of increased density measuri ng 6.7 cm with smaller adjacent focus measuring 3.4 cm, likely related to small areas of hematoma. T here is also adjacent subcutaneous edema. 10. Small hiatal hernia. 11. Findings are in agreement with the preliminary report by [facility]. POS: PHYLLIS
[2017-09-18] MEDS ORDERED: ISOVUE-370 76%-LOCM 1 ML ONE (10:35)
== END 2017-09-18 05:45 | disposition home or self-care (01) ==
LOC: ERS 01:06
DX: G89.18 Other acute postprocedural pain (principal); Z86.73 Personal history of transient ischemic attack (TIA), and cerebral infarction without residual deficits; E78.5 Hyperlipidemia, unspecified; I10 Essential (primary) hypertension; I25.10 Atherosclerotic heart disease of native coronary artery without angina pectoris; Z87.891 Personal history of nicotine dependence; Z79.899 Other long term (current) drug therapy
CPT/HCPCS: 36415; 74177; 80053; 85025; 85610; 85730; 96361; 96374; J2270

== ENCOUNTER 2017-09-24 14:37 | Outpatient (CLI) | payer MEDICARE, BC | END 2017-09-24 14:38 | disposition home or self-care (01) | LOC: BICCT 14:37 | PROVIDERS: ATTEND Family Medicine | DX: M54.9 Dorsalgia, unspecified (principal); M48.061 Spinal stenosis, lumbar region without neurogenic claudication; M51.27 Other intervertebral disc displacement, lumbosacral region; M51.26 Other intervertebral disc displacement, lumbar region; M47.896 Other spondylosis, lumbar region; M47.897 Other spondylosis, lumbosacral region; I70.0 Atherosclerosis of aorta | CPT/HCPCS: 72131 ==

== ENCOUNTER 2017-10-19 10:39 | Outpatient (CLI) | payer MEDICARE, BC ==
--- NOTE | 2017-10-19 14:55 | ULT ---
VENOUS DUPLEX SONOGRAM RIGHT LOWER EXTREMITY: HISTORY: Right leg pain and edema at the popliteal fossa. FINDINGS: The right common femoral vein and greater saphenous junction were evaluated, along with the femoral, deep femoral, popliteal, and posterior tibial veins. There is good color and spectral Doppler flow a nd compression. Sonographic evaluation of the popliteal fossa shows no solid or cystic masses. IMPRESSION: No significant abnormalities are demonstrated. POS: ELMO
== END 2017-10-19 10:40 | disposition home or self-care (01) ==
LOC: ULT 10:39
PROVIDERS: ATTEND Family Medicine
DX: M79.661 Pain in right lower leg (principal)

== ENCOUNTER 2018-06-24 14:17 | Emergency (ER) | payer MEDICARE, BC | END 2018-06-24 14:50 | disposition home or self-care (01) | LOC: ERS 14:17 | DX: M54.5 Low back pain (principal); Z86.73 Personal history of transient ischemic attack (TIA), and cerebral infarction without residual deficits; E78.5 Hyperlipidemia, unspecified; I10 Essential (primary) hypertension; I25.10 Atherosclerotic heart disease of native coronary artery without angina pectoris; Z87.891 Personal history of nicotine dependence | CPT/HCPCS: 99283 ==

== ENCOUNTER 2019-05-09 07:12 | Outpatient (CLI) | payer MEDICARE, BC ==
[2019-05-09 10:04] LABS: Hemoglobin 13.9 g/dL (14.0-18.0); Mean Corpuscular HGB CONC 34.4 g/dL (32.0-36.0); Mean Corpuscular Hemoglobin 31.8 pg (27.0-31.0); Mean Corpuscular Volume 92.3 fL (78.0-98.0); Platelet Count 152 thou/uL (130-400); RBC Distribution Width 12.5 % (11.5-14.5); Red Blood Cell (RBC) Count 4.39 mill/uL (4.70-6.10); White Blood Cell (WBC) Count 5.6 thou/uL (4.8-10.8)
[2019-05-09 10:11] LABS: INR-International Normal Ratio 1.4; Prothrombin Time 17.3 SEC (12.0-14.7)
[2019-05-09 10:12] LABS: PTT 55.4 SEC (22.9-36.1)
[2019-05-09 10:19] LABS: Bacteria/HPF None Seen HPF (None Seen); Bilirubin Negative (Negative); Blood, Urine Negative (Negative); Clarity Clear (Clear); Glucose, Urine (Dipstick) Normal (Negative); Leukocyte Negative Leu/uL (Negative); Nitrite Negative (Negative); Protein, Urine (Dipstick) 70 mg/dL (Neg-Trace); RBC/HPF 0-3 HPF (0-3); Squamous Epithelial 0-3 HPF (0-3); Urobilinogen Normal mg/dL (Less than 2); WBC/HPF 0-3 HPF (0-3)
[2019-05-09 10:41] LABS: Calcium 9.3 mg/dL (7.8-10.44); Chloride 109 mmol/L (98-107); Potassium 4.6 mmol/L (3.5-5.1); Sodium 139 mmol/L (136-145)
[2019-05-09 10:42] LABS: Glucose 104 mg/dL (83-110)
[2019-05-09 10:44] LABS: Carbon Dioxide 23 mmol/L (23-31)
[2019-05-09 10:45] LABS: Calc. Creatinine Clearance 0 mL/min (70-130); Estimated GFR-MDRD 49
[2019-05-09 10:46] LABS: BUN (Urea Nitrogen) 25 mg/dL (8.4-25.7)
[2019-05-09 11:45] LABS: Anion Gap 12 mmol/L (10-20)
== END 2019-05-09 07:13 | disposition home or self-care (01) ==
LOC: LABBT 07:12
PROVIDERS: ATTEND Urology
DX: Z01.818 Encounter for other preprocedural examination (principal); N40.0 Benign prostatic hyperplasia without lower urinary tract symptoms
CPT/HCPCS: 80048; 81001; 85027; 85610; 85730; 87086; 93005; 93010

== ENCOUNTER 2019-05-16 06:27 | Observation (INO) | payer MEDICARE, BC ==
[2019-05-16] MEDS ORDERED: Levofloxacin 500 mg/D5W 100 ml Premix Bag ONE (07:55)
[2019-05-16] MEDS ORDERED: B & O ONE (09:04)
[2019-05-16] MEDS ORDERED: Fentanyl 100 MCG/2 ML VIAL ONE (09:14)
[2019-05-16] MEDS ORDERED: Phenylephrine 10 MG/ML VIAL ONE (09:15)
[2019-05-16] MEDS ORDERED: Ondansetron HCl/PF 4 MG/2 ML Vial IVP PRN (10:18)
[2019-05-16] MEDS ORDERED: PACU-Morphine 4MG/ML VIAL SLOW IVP PRN (10:18)
[2019-05-16] MEDS ORDERED: Morphine Sulfate 2 MG/ML SYRINGE SLOW IVP PRN (10:18)
[2019-05-16] MEDS ORDERED: Hyoscyamine Sulfate SL 0.125 mg Tablet SL PRN (10:29)
[2019-05-16] MEDS ORDERED: Bisacodyl 10 MG SUPP PR PRN (10:29)
[2019-05-16] MEDS ORDERED: hydrALAZINE 20 MG/ML VIAL SLOW IVP PRN (10:29)
[2019-05-16] MEDS ORDERED: Mag-Al 1200 mg/1200 mg/30 ML UDCUP PO PRN (10:29)
[2019-05-16] MEDS ORDERED: Ondansetron PF 4 MG/2 ML Vial IVP PRN (10:29)
[2019-05-16] MEDS ORDERED: Acetaminophen 500 MG TAB PO PRN (10:29)
[2019-05-16] MEDS ORDERED: Morphine 2 MG/ML SYRINGE SLOW IVP PRN (10:29)
[2019-05-16] MEDS ORDERED: traMADol HCl 50 MG TAB PO PRN (10:32)
[2019-05-16] MEDS ORDERED: PROPOFOL 200 MG/20 ML VIAL ONE (11:45)
[2019-05-16] MEDS ORDERED: Lidocaine 1% PF 5 ML VIAL ONE (11:45)
[2019-05-16] MEDS ORDERED: Esmolol 100 MG/10 ML VIAL ONE (11:45)
[2019-05-16] MEDS ORDERED: Rocuronium Bromide 10 MG/ML (10ML VIAL) ONE (11:45)
[2019-05-16] MEDS ORDERED: Glycopyrrolate 0.2 MG/ML 5 ML SYRINGE ONE (11:45)
[2019-05-16 12:34] VITALS: BMI 38.0
[2019-05-16] MEDS: Docusate 100 MG CAP PO SCH (20:32)
[2019-05-16] MEDS: Trospium 20 MG TAB PO SCH (20:45)
[2019-05-16] MEDS: Benzonatate 100 MG CAP PO PRN (20:45)
[2019-05-16] MEDS ORDERED: Calcitriol 0.25 MCG CAP PO SCH (21:00)
[2019-05-16] MEDS ORDERED: Atorvastatin Calcium 40 MG TAB PO SCH (21:00)
[2019-05-17 06:03] LABS: Anion Gap 11 mmol/L (10-20); BUN (Urea Nitrogen) 21 mg/dL (8.4-25.7); Calc. Creatinine Clearance 59 mL/min (70-130); Carbon Dioxide 23 mmol/L (23-31); Chloride 106 mmol/L (98-107); Estimated GFR-MDRD 46; Glucose 102 mg/dL (83-110); Potassium 4.2 mmol/L (3.5-5.1); Sodium 136 mmol/L (136-145)
[2019-05-17] MEDS: Benzonatate 100 MG CAP PO PRN (06:18)
[2019-05-17 06:19] LABS: #Eosinphils 0.1 thou/uL (0.0-0.7); #Lymphocytes 1.4 thou/uL (1.20-3.40); #Monocytes 0.7 thou/uL (0.11-0.59); #Neutrophils 4.5 thou/uL (1.40-6.50); %Basophils 0.2 % (0.0-1.0); %Eosinophils 1.8 % (0.0-10.0); %Lymphocytes 20.4 % (21.0-51.0); %Monocytes 10.5 % (0.0-10.0); %Neutrophils 67.2 % (42.0-75.0); Hypochromia SLIGHT = 6-15 cells (100X) (0-5/hpf); MDiff Complete? YES; Mean Corpuscular HGB CONC 33.8 g/dL (32.0-36.0); Mean Corpuscular Hemoglobin 31.8 pg (27.0-31.0); Mean Platelet Volume 8.1 fL (7.4-10.4); Platelet Count 119 thou/uL (130-400); Platelet Morphology Comment Appears Decreased; RBC Distribution Width 12.7 % (11.5-14.5); Red Blood Cell (RBC) Count 4.09 mill/uL (4.70-6.10); White Blood Cell (WBC) Count 6.7 thou/uL (4.8-10.8)
[2019-05-17] MEDS ORDERED: Nebivolol HCl 2.5 MG TAB PO SCH (09:00)
[2019-05-17] MEDS: Docusate 100 MG CAP PO SCH (09:27)
[2019-05-17 10:46] VITALS: BP 139/64; TEMP 98.7
[2019-05-17] MEDS: Nebivolol HCl 2.5 MG TAB PO SCH ×2 (14:20→14:26)
[2019-05-17] MEDS: Trospium 20 MG TAB PO SCH ×3 (14:20→14:26)
--- NOTE | 2019-05-19 10:52 | DIS ---
DATE OF ADMISSION: 05/16/2019 DATE OF DISCHARGE: 05/17/2019 ADMITTING DIAGNOSES: Benign prostatic hypertrophy with bladder lesion. DISCHARGE DIAGNOSES: Benign prostatic hypertrophy with bladder lesion. PROCEDURE PERFORMED: Transurethral resection of the prostate with bladder biopsy. BRIEF HISTORY: Mr. Dobbs is an 88-year-old white male with history of bladder cancer and previous BPH, status post GreenLight vaporization. He has had significant regrowth and is now coming in for repeat TURP and biopsy of the bladder lesion. The full H and P can be found in the scanned portion of the [employer] system. HOSPITAL COURSE: After surgery (please see operative note for details), the patient was admitted to the hospital for postoperative recovery. He was kept on CBI overnight. The CBI was stopped in the morning. His urine was relatively clear, although there was a small amount of blood. The catheter was then removed and the patient was able to void. The patient was then discharged home without any further problems. DISPOSITION: Discharged to home. DISCHARGE CONDITION: Good. DISCHARGE MEDICATIONS: Please see medication reconciliation. DISCHARGE INSTRUCTIONS: Discharge instructions were gone over with the patient. Follow up will be in approximately 1 to 2 weeks for postop check and biopsy results. Job ID: [id number]
--- NOTE | 2019-05-19 10:52 | OP ---
DATE OF PROCEDURE: 05/16/2019 SERVICES: Urology. PREOPERATIVE DIAGNOSIS: Benign prostatic hypertrophy with bladder lesion. POSTOPERATIVE DIAGNOSIS: Benign prostatic hypertrophy with bladder lesion. PROCEDURE PERFORMED: Transurethral resection of the prostate with bladder biopsy and fulguration. INDICATIONS FOR PROCEDURE: Mr. Dobbs is an 88-year-old white male with BPH and urinary symptoms. He also has a history of bladder cancer, low-grade. He was complaining of worsening urinary symptoms and elected to go for a TURP. On his cystoscopy was noted to be a reddish lesion, which we have been watching on the dome of the bladder. I figured since we are going to the operating room, we will go ahead and biopsy this area as well as resect his prostate regrowth for improved urinary symptoms as he has already undergone vaporization in the past. We discussed risks and benefits of the procedure, and he agreed to proceed forward. DESCRIPTION OF PROCEDURE: After identification of armband and verification of consent, the patient was brought back to the operating room. He underwent general anesthesia with an LMA. He was then placed in a dorsal lithotomy position and prepped and draped in usual sterile fashion. After appropriate time-out, a lubricated 22-Micronesian rigid cystoscope was introduced per urethra into the bladder. The prostate was found to be hypertrophic with significant regrowth from his previous surgery. There was a reddish lesion noted at the dome of the bladder. Using cold cup biopsy forceps, this area was grasped with flexible graspers and removed in 2 pieces and sent for routine pathologic evaluation. The cystoscope was then withdrawn, and the 26-Micronesian resectoscope sheath with visual obturator was passed with ease through the urethra into the bladder. The visual obturator was switched out for the prostate bipolar resectoscope loop. The area in the bladder was cauterized and fulgurated for hemostasis. Once adequately dried, the resection was started on the prostate starting at the bladder neck and resecting backwards to the verumontanum until the prostate was circumferentially wide open. Resection was taken down close to, but not through the capsule. Once the prostate was extremely wide and sufficiently opened, all prostate chips were removed from the bladder using the combination of Ellik evacuator and resectoscope sheath. Meticulous hemostasis was performed on the prostatic fossa until it was completely dry. Both ureters were found in the orthotopic location at the end of the surgery unharmed. The resectoscope was then removed leaving the bladder partially filled, and a 22-Micronesian 3-way Mckeon catheter was placed into the patient's bladder with ease. CBI was initiated, and 30 mL of sterile water was placed into the balloon. B and O suppository was placed in the patient's rectum. He was then taken out of position, awakened, and taken to PACU for recovery in stable condition. COMPLICATIONS: None. ESTIMATED BLOOD LOSS: Minimal. RETAINED TUBES AND DRAINS: 22-Micronesian 3-way Mckeon catheter on CBI. SPECIMENS: Bladder biopsy and prostate chips. DISPOSITION: The patient will be kept in the hospital overnight for monitoring. We will plan a void trial in the morning and then discharge with followup on an outpatient basis. Job ID: [id number]
== END 2019-05-17 15:01 | disposition home or self-care (01) ==
LOC: SDC 06:27 → SURG A 10:33
PROVIDERS: ADMIT Urology; ATTEND Urology
PROC: 0V508ZZ Destruction of Prostate, Via Natural or Artificial Opening Endoscopic (ICD-10-PCS; principal; 2019-05-16)
PROC: 0TBB8ZX Excision of Bladder, Via Natural or Artificial Opening Endoscopic, Diagnostic (ICD-10-PCS; 2019-05-16)
DX: N40.1 Benign prostatic hyperplasia with lower urinary tract symptoms (principal); N39.41 Urge incontinence; N32.9 Bladder disorder, unspecified; I48.0 Paroxysmal atrial fibrillation; I12.9 Hypertensive chronic kidney disease with stage 1 through stage 4 chronic kidney disease, or unspecified chronic kidney disease; E11.22 Type 2 diabetes mellitus with diabetic chronic kidney disease; N18.4 Chronic kidney disease, stage 4 (severe); I25.10 Atherosclerotic heart disease of native coronary artery without angina pectoris; E78.00 Pure hypercholesterolemia, unspecified; G47.33 Obstructive sleep apnea (adult) (pediatric); Z79.01 Long term (current) use of anticoagulants; Z79.899 Other long term (current) drug therapy; Z85.51 Personal history of malignant neoplasm of bladder; Z86.73 Personal history of transient ischemic attack (TIA), and cerebral infarction without residual deficits; Z95.0 Presence of cardiac pacemaker; Z87.891 Personal history of nicotine dependence
CPT/HCPCS: 52601; 80048; 85025; 88305; G0378 ×2; 36415; J1956; J2001; J2370; J2704; J3010

== ENCOUNTER 2020-04-21 16:10 | Inpatient (IN) | payer MEDICARE, BC ==
[2020-04-21 17:31] LABS: ALT (SGPT) 10 U/L (8-55); AST (SGOT) 10 U/L (5-34); Albumin 3.6 g/dL (3.4-4.8); Alkaline Phosphatase 36 U/L (40-110); Anion Gap 14 mmol/L (10-20); BUN (Urea Nitrogen) 31 mg/dL (8.4-25.7); CK (CPK) 47 U/L (30-200); Calc. Creatinine Clearance 0 mL/min (70-130); Calcium 9.5 mg/dL (7.8-10.44); Carbon Dioxide 20 mmol/L (23-31); Chloride 110 mmol/L (98-107); Globulin 2.8 g/dL (2.4-3.5); Glucose 106 mg/dL (83-110); Potassium 4.7 mmol/L (3.5-5.1); Protein, Total 6.4 g/dL (5.8-8.1); Sodium 139 mmol/L (136-145)
[2020-04-21 17:54] LABS: CKMB 1.3 ng/mL (0-6.6)
[2020-04-21 17:58] LABS: Band 2 % (5-11); Eosinophils 4 % (0-10); Hemoglobin 14.8 g/dL (14.0-18.0); Large Platelets SLIGHT; Lymphocytes 36 % (21-51); MDiff Complete? YES; Mean Corpuscular HGB CONC 32.9 g/dL (32.0-36.0); Mean Corpuscular Volume 91.1 fL (78.0-98.0); Mean Platelet Volume 18.1 fL (7.4-10.4); Monocytes 35 % (0-10); Neutrophil 3 % (42-75); Platelet Count 3 thou/uL (130-400); Platelet Morphology Comment Appears Decreased; Polychromasia SLIGHT = 2-3 cells (100X) (0-2/hpf); Reactive Lymphocytes 18 % (0-10); Red Blood Cell (RBC) Count 4.95 mill/uL (4.70-6.10); Reflex for Review?? YES; White Blood Cell (WBC) Count 2.1 thou/uL (4.8-10.8)
[2020-04-21] MEDS ORDERED: HYDROcodone/Acetaminophen 5/325 mg Tablet ONE (17:59)
[2020-04-21 18:04] LABS: INR-International Normal Ratio 1.4; Prothrombin Time 17.7 sec (12.0-14.7)
[2020-04-21 18:05] LABS: PTT 56.3 sec (22.9-36.1)
[2020-04-21 19:40] LABS: Bacteria/HPF None Seen HPF (None Seen); Bilirubin Negative (Negative); Blood, Urine 2+ (Negative); Clarity Clear (Clear); Glucose, Urine (Dipstick) Normal (Negative); Ketone, Urine Negative (Negative); Leukocyte Negative Leu/uL (Negative); Nitrite Negative (Negative); Protein, Urine (Dipstick) 50 mg/dL (Neg-Trace); RBC/HPF Greater than 50 HPF (0-3); Specific Gravity, Urine 1.023 (1.002-1.036); Squamous Epithelial 0-3 HPF (0-3); Urobilinogen Normal mg/dL (Less than 2); WBC/HPF 0-3 HPF (0-3); pH, Urine 5.5 (5.0-9.0)
[2020-04-21 21:07] LABS: SARS-CoV-2 NAA Rapid Test Not Detected (NotDetected)
[2020-04-21 21:46] LABS: Troponin I 0.111 ng/mL (< 0.028)
[2020-04-21 23:06] VITALS: BMI 38.2
[2020-04-21] MEDS: HYDROcodone/Acetaminophen 7.5/325 mg Tablet PO PRN (23:35)
[2020-04-22] MEDS ORDERED: Morphine 4 MG/ML VIAL SLOW IVP SCH (00:30)
[2020-04-22 00:35] LABS: Troponin I 0.097 ng/mL (< 0.028)
[2020-04-22 01:08] LABS: Hemoglobin 14.3 g/dL (14.0-18.0); Mean Corpuscular HGB CONC 33.5 g/dL (32.0-36.0); Mean Corpuscular Hemoglobin 30.7 pg (27.0-31.0); Mean Corpuscular Volume 91.7 fL (78.0-98.0); Mean Platelet Volume 13.5 fL (7.4-10.4); Platelet Count 6 thou/uL (130-400); RBC Distribution Width 13.2 % (11.5-14.5); Red Blood Cell (RBC) Count 4.65 mill/uL (4.70-6.10); White Blood Cell (WBC) Count 1.9 thou/uL (4.8-10.8)
[2020-04-22 01:13] LABS: Band 1 % (5-11); Eosinophils 4 % (0-10); Lymphocytes 62 % (21-51); MDiff Complete? YES; Monocytes 12 % (0-10); Neutrophil 11 % (42-75); Platelet Morphology Comment Appears Decreased; Reactive Lymphocytes 10 % (0-10)
[2020-04-22] MEDS: HYDROcodone/Acetaminophen 7.5/325 mg Tablet PO PRN ×2 (04:21→08:20)
[2020-04-22 06:17] LABS: Platelet Count 7 thou/uL (130-400)
[2020-04-22 06:50] LABS: Anion Gap 13 mmol/L (10-20); BUN (Urea Nitrogen) 28 mg/dL (8.4-25.7); Calc. Creatinine Clearance 56 mL/min (70-130); Calcium 9.3 mg/dL (7.8-10.44); Carbon Dioxide 20 mmol/L (23-31); Chloride 109 mmol/L (98-107); Glucose 108 mg/dL (83-110); Phosphorus 3.7 mg/dL (2.3-4.7); Potassium 4.4 mmol/L (3.5-5.1); Sodium 138 mmol/L (136-145)
[2020-04-22 07:19] LABS: Band 6 % (5-11); Eosinophils 8 % (0-10); Hemoglobin 13.2 g/dL (14.0-18.0); Lymphocytes 48 % (21-51); MDiff Complete? YES; Mean Corpuscular HGB CONC 32.8 g/dL (32.0-36.0); Mean Corpuscular Volume 91.5 fL (78.0-98.0); Platelet Morphology Comment Appears Decreased; Polychromasia SLIGHT = 2-3 cells (100X) (0-2/hpf); Reactive Lymphocytes 34 % (0-10); Red Blood Cell (RBC) Count 4.39 mill/uL (4.70-6.10); White Blood Cell (WBC) Count 1.7 thou/uL (4.8-10.8)
[2020-04-22 07:26] LABS: Vitamin B12 551 pg/mL (211-911)
[2020-04-22 07:30] LABS: Hep C IgG Ab Non-Reactive (NonReactive); Hep C Index 0.09 S/CO (0-0.79)
[2020-04-22] MEDS ORDERED: Nebivolol HCl 5 MG TAB PO SCH (10:45)
[2020-04-22] MEDS ORDERED: methylPREDNISolone Sod Succ/PF 125 MG/2 ML VIAL IVP SCH (10:45)
[2020-04-22 11:54] LABS: Hemoglobin 13.9 g/dL (14.0-18.0); Mean Corpuscular HGB CONC 32.7 g/dL (32.0-36.0); Mean Corpuscular Hemoglobin 29.9 pg (27.0-31.0); Mean Corpuscular Volume 91.5 fL (78.0-98.0); Platelet Count 7 thou/uL (130-400); Red Blood Cell (RBC) Count 4.66 mill/uL (4.70-6.10); White Blood Cell (WBC) Count 2.1 thou/uL (4.8-10.8)
[2020-04-22 11:59] LABS: Band 8 % (5-11); Eosinophils 4 % (0-10); Lymphocytes 50 % (21-51); MDiff Complete? YES; Monocytes 30 % (0-10); Neutrophil 9 % (42-75); Platelet Morphology Comment Appears Decreased; RBC Morphology Normal
[2020-04-22] MEDS ORDERED: Cyclobenzaprine 10 MG TAB PO SCH (13:15)
[2020-04-22] MEDS: Sodium Chloride 0.9% 1,000 ML IV SCH (14:32)
[2020-04-22] MEDS ORDERED: OCTAGAM 10% (10 GM/100 ML VIAL) IVPB SCH (15:15)
[2020-04-22] MEDS ORDERED: Dexamethasone 20 MG in Sodium Chloride 0.9% 50 ML IVPB SCH (15:15)
[2020-04-22] MEDS ORDERED: OCTAGAM IVPB SCH (15:45)
[2020-04-22] MEDS: Atorvastatin Calcium 40 MG TAB PO SCH (21:10)
[2020-04-22] MEDS: Calcitriol 0.25 MCG CAP PO SCH (21:10)
[2020-04-23 05:05] LABS: Anion Gap 12 mmol/L (10-20); BUN (Urea Nitrogen) 31 mg/dL (8.4-25.7); Calc. Creatinine Clearance 53 mL/min (70-130); Calcium 8.8 mg/dL (7.8-10.44); Carbon Dioxide 20 mmol/L (23-31); Chloride 106 mmol/L (98-107); Glucose 264 mg/dL (83-110); Potassium 4.6 mmol/L (3.5-5.1); Sodium 133 mmol/L (136-145)
[2020-04-23] MEDS: Sodium Chloride 0.9% 1,000 ML IV SCH ×3 (07:00→19:04)
[2020-04-23 07:32] LABS: #Lymphocytes 0.4 thou/uL (1.20-3.40); #Monocytes 0.4 thou/uL (0.11-0.59); #Neutrophils 1.8 thou/uL (1.40-6.50); %Basophils 0.6 % (0.0-1.0); %Eosinophils 0.1 % (0.0-10.0); %Lymphocytes 13.5 % (21.0-51.0); %Monocytes 13.9 % (0.0-10.0); %Neutrophils 71.8 % (42.0-75.0); Hemoglobin 12.9 g/dL (14.0-18.0); Mean Corpuscular HGB CONC 33.1 g/dL (32.0-36.0); Mean Corpuscular Hemoglobin 30.3 pg (27.0-31.0); Mean Corpuscular Volume 91.7 fL (78.0-98.0); Mean Platelet Volume 12.3 fL (7.4-10.4); Platelet Count 24 thou/uL (130-400); RBC Distribution Width 12.9 % (11.5-14.5); Red Blood Cell (RBC) Count 4.24 mill/uL (4.70-6.10); White Blood Cell (WBC) Count 2.6 thou/uL (4.8-10.8)
[2020-04-23] MEDS: Cyanocobalamin (Vitamin B-12) 1,000 MCG TAB PO SCH (08:50)
[2020-04-23] MEDS: Dexamethasone 4 MG TAB PO SCH (08:50)
[2020-04-23] MEDS ORDERED: Nebivolol HCl 5 MG TAB PO SCH (09:00)
[2020-04-23] MEDS ORDERED: Cyclobenzaprine 10 MG TAB PO PRN (17:09)
[2020-04-23] MEDS: HYDROcodone/Acetaminophen 7.5/325 mg Tablet PO PRN (21:00)
[2020-04-23] MEDS: Calcitriol 0.25 MCG CAP PO SCH (21:00)
[2020-04-23] MEDS: Atorvastatin Calcium 40 MG TAB PO SCH (21:01)
[2020-04-24 05:19] LABS: #Lymphocytes 0.5 thou/uL (1.20-3.40); #Monocytes 0.4 thou/uL (0.11-0.59); %Eosinophils 0.1 % (0.0-10.0); %Lymphocytes 9.5 % (21.0-51.0); %Monocytes 7.6 % (0.0-10.0); %Neutrophils 82.7 % (42.0-75.0); Hemoglobin 12.4 g/dL (14.0-18.0); Mean Corpuscular HGB CONC 32.9 g/dL (32.0-36.0); Mean Corpuscular Hemoglobin 30.4 pg (27.0-31.0); Mean Corpuscular Volume 92.5 fL (78.0-98.0); Mean Platelet Volume 10.3 fL (7.4-10.4); Platelet Count 68 thou/uL (130-400); RBC Distribution Width 13.1 % (11.5-14.5); Red Blood Cell (RBC) Count 4.07 mill/uL (4.70-6.10); White Blood Cell (WBC) Count 4.9 thou/uL (4.8-10.8)
[2020-04-24 05:24] LABS: INR-International Normal Ratio 1.1; PTT 33.3 sec (22.9-36.1); Prothrombin Time 14.9 sec (12.0-14.7)
[2020-04-24] MEDS: Dexamethasone 4 MG TAB PO SCH (08:44)
[2020-04-24] MEDS: Amlodipine 5 MG TAB PO SCH (08:45)
[2020-04-24] MEDS: Sodium Chloride 0.9% 1,000 ML IV SCH (08:47)
[2020-04-24] MEDS: Nebivolol HCl 5 MG TAB PO SCH (08:47)
[2020-04-24] MEDS: Cyanocobalamin (Vitamin B-12) 1,000 MCG TAB PO SCH (08:47)
[2020-04-24] MEDS ORDERED: Electrolyte Replacement Protocol 1 EACH FS SCH (11:00)
[2020-04-24] MEDS ORDERED: Electrolyte Replacement Protocol FS PRN (11:15)
[2020-04-24 12:15] LABS: Anion Gap 11 mmol/L (10-20); BUN (Urea Nitrogen) 33 mg/dL (8.4-25.7); Calc. Creatinine Clearance 65 mL/min (70-130); Calcium 8.9 mg/dL (7.8-10.44); Carbon Dioxide 21 mmol/L (23-31); Chloride 109 mmol/L (98-107); Glucose 174 mg/dL (83-110); Magnesium 1.9 mg/dL (1.6-2.6); Potassium 4.5 mmol/L (3.5-5.1); Sodium 136 mmol/L (136-145)
[2020-04-24] MEDS ORDERED: Magnesium 2 GM/50 ML 2 GM in Premix Bag 1 BAG IVPB SCH (13:45)
[2020-04-24] MEDS: Atorvastatin Calcium 40 MG TAB PO SCH (21:24)
[2020-04-24] MEDS: Calcitriol 0.25 MCG CAP PO SCH (21:24)
[2020-04-25 04:52] LABS: #Lymphocytes 0.5 thou/uL (1.20-3.40); #Monocytes 0.3 thou/uL (0.11-0.59); #Neutrophils 4.4 thou/uL (1.40-6.50); %Lymphocytes 9.1 % (21.0-51.0); %Monocytes 5.1 % (0.0-10.0); %Neutrophils 85.8 % (42.0-75.0); Mean Corpuscular HGB CONC 32.3 g/dL (32.0-36.0); Mean Corpuscular Volume 92.7 fL (78.0-98.0); Mean Platelet Volume 9.5 fL (7.4-10.4); Platelet Count 109 thou/uL (130-400); RBC Distribution Width 13.1 % (11.5-14.5); Red Blood Cell (RBC) Count 4.35 mill/uL (4.70-6.10); White Blood Cell (WBC) Count 5.2 thou/uL (4.8-10.8)
[2020-04-25 05:06] LABS: Anion Gap 7 mmol/L (10-20); BUN (Urea Nitrogen) 33 mg/dL (8.4-25.7); Calc. Creatinine Clearance 69 mL/min (70-130); Calcium 8.8 mg/dL (7.8-10.44); Carbon Dioxide 22 mmol/L (23-31); Chloride 109 mmol/L (98-107); Glucose 191 mg/dL (83-110); Potassium 4.4 mmol/L (3.5-5.1); Sodium 134 mmol/L (136-145)
[2020-04-25] MEDS: Nebivolol HCl 5 MG TAB PO SCH (13:17)
[2020-04-25] MEDS: Cyanocobalamin (Vitamin B-12) 1,000 MCG TAB PO SCH (13:18)
[2020-04-25] MEDS: Amlodipine 5 MG TAB PO SCH (13:18)
[2020-04-25] MEDS: Atorvastatin Calcium 40 MG TAB PO SCH (20:34)
[2020-04-25] MEDS: Calcitriol 0.25 MCG CAP PO SCH (20:34)
[2020-04-26] MEDS: HYDROcodone/Acetaminophen 7.5/325 mg Tablet PO PRN ×2 (04:23→20:05)
[2020-04-26 05:24] LABS: #Lymphocytes 0.9 thou/uL (1.20-3.40); #Monocytes 0.5 thou/uL (0.11-0.59); #Neutrophils 2.2 thou/uL (1.40-6.50); %Basophils 0.2 % (0.0-1.0); %Eosinophils 0.3 % (0.0-10.0); %Lymphocytes 25.2 % (21.0-51.0); %Neutrophils 60.2 % (42.0-75.0); Hemoglobin 12.7 g/dL (14.0-18.0); Mean Corpuscular HGB CONC 33.4 g/dL (32.0-36.0); Mean Corpuscular Hemoglobin 30.8 pg (27.0-31.0); Mean Corpuscular Volume 92.1 fL (78.0-98.0); Mean Platelet Volume 9.2 fL (7.4-10.4); Platelet Count 120 thou/uL (130-400); RBC Distribution Width 12.9 % (11.5-14.5); Red Blood Cell (RBC) Count 4.11 mill/uL (4.70-6.10); White Blood Cell (WBC) Count 3.6 thou/uL (4.8-10.8)
[2020-04-26] MEDS: Amlodipine 5 MG TAB PO SCH (08:19)
[2020-04-26] MEDS: Cyanocobalamin (Vitamin B-12) 1,000 MCG TAB PO SCH (08:19)
[2020-04-26] MEDS: Nebivolol HCl 5 MG TAB PO SCH (08:30)
[2020-04-26] MEDS ORDERED: Nebivolol HCl 5 MG TAB PO SCH (09:00)
[2020-04-26] MEDS ORDERED: Lidocaine 1% (PF) 30 ML VIAL ONE (11:44)
[2020-04-26] MEDS ORDERED: CEFAZOLIN 1 GM VIAL ONE (11:45)
[2020-04-26] MEDS ORDERED: Gentamicin 80 MG/2 ML VIAL ONE (11:45)
[2020-04-26] MEDS ORDERED: hydrALAZINE 20 MG/ML VIAL ONE (12:58)
[2020-04-26 13:13] LABS: Albumin-Ur 74.9 % (.); Alpha 1 - Ur 1.2 % (.); Alpha 2 - Ur 5.8 % (.); Beta-Ur 8.4 % (.); Gamma-Ur 9.7 % (.); M-Spike,% Not Observed % (Not Observed); Protein, Urine 80.3 mg/dL (Not Estab.)
[2020-04-26 13:13] LABS: Albumin, PEP 24hr Ur 47.6 % (NOT ESTAB.); Alpha-1-Globulin, PEP 24h Ur 3.2 % (NOT ESTAB.); Alpha-2-Globulin, PEP 24h Ur 10.9 % (NOT ESTAB.); Beta Globulin, PEP 24h Ur 11.3 % (NOT ESTAB.); Gamma Globulin, PEP 24h Ur 27.1 % (NOT ESTAB.); M-Spike,% PEP 24hr Ur Not Observed % (Not Observed); Protein, PEP 24hr calculated 639 mg/24 hr (30-150); Protein, Urine 69.1 mg/dL (Not Estab.)
[2020-04-26 13:37] LABS: Albumin 3.1 g/dL (2.9-4.4); Alpha 1 0.2 g/dL (0.0-0.4); Alpha 2 0.8 g/dL (0.4-1.0); Beta 0.8 g/dL (0.7-1.3); Gamma 1.1 g/dL (0.4-1.8); M-Spike Not Observed g/dL (Not Observed)
[2020-04-26] MEDS: Atorvastatin Calcium 40 MG TAB PO SCH (20:05)
[2020-04-26] MEDS: Calcitriol 0.25 MCG CAP PO SCH (20:05)
[2020-04-27 05:34] LABS: Band 1 % (5-11); Eosinophils 1 % (0-10); Lymphocytes 51 % (21-51); MDiff Complete? YES; Mean Corpuscular HGB CONC 34.8 g/dL (32.0-36.0); Mean Corpuscular Hemoglobin 32.2 pg (27.0-31.0); Mean Corpuscular Volume 92.7 fL (78.0-98.0); Mean Platelet Volume 9.3 fL (7.4-10.4); Metamyelocyte 1 % (0-0); Monocytes 20 % (0-10); Neutrophil 26 % (42-75); Platelet Count 101 thou/uL (130-400); Platelet Morphology Comment Appears Decreased; Red Blood Cell (RBC) Count 4.33 mill/uL (4.70-6.10); White Blood Cell (WBC) Count 2.5 thou/uL (4.8-10.8)
[2020-04-27] MEDS: Amlodipine 5 MG TAB PO SCH (08:07)
[2020-04-27] MEDS: Cyanocobalamin (Vitamin B-12) 1,000 MCG TAB PO SCH (08:07)
[2020-04-27] MEDS: Nebivolol HCl 5 MG TAB PO SCH (08:08)
[2020-04-27 08:13] VITALS: TEMP 97.5
[2020-04-27] MEDS ORDERED: Aspirin 81 mg Enteric Coated Tablet PO SCH (09:00)
[2020-04-27 09:05] VITALS: BP 148/68
== END 2020-04-27 10:43 | disposition home or self-care (01) | DRG 988 ==
LOC: ERS 16:10 → ONC 20:56 → 2NO 04-22 07:35
PROVIDERS: ADMIT Student in an Organized Health Care Education/Training Program; ATTEND Internal Medicine
PROC: 30233R1 Transfusion of Nonautologous Platelets into Peripheral Vein, Percutaneous Approach (ICD-10-PCS; 2020-04-21)
PROC: 30233S1 Transfusion of Nonautologous Globulin into Peripheral Vein, Percutaneous Approach (ICD-10-PCS; 2020-04-23)
PROC: 0JPT0PZ Removal of Cardiac Rhythm Related Device from Trunk Subcutaneous Tissue and Fascia, Open Approach (ICD-10-PCS; principal; 2020-04-26)
PROC: 0JH606Z Insertion of Pacemaker, Dual Chamber into Chest Subcutaneous Tissue and Fascia, Open Approach (ICD-10-PCS; 2020-04-26)
DX: D69.6 Thrombocytopenia, unspecified (principal); N17.9 Acute kidney failure, unspecified; E87.1 Hypo-osmolality and hyponatremia; I47.2 Ventricular tachycardia; Z20.822 Contact with and (suspected) exposure to COVID-19; N18.30 Chronic kidney disease, stage 3 unspecified; D72.819 Decreased white blood cell count, unspecified; N20.0 Calculus of kidney; N28.1 Cyst of kidney, acquired; E78.5 Hyperlipidemia, unspecified; E78.00 Pure hypercholesterolemia, unspecified; I12.9 Hypertensive chronic kidney disease with stage 1 through stage 4 chronic kidney disease, or unspecified chronic kidney disease; N40.0 Benign prostatic hyperplasia without lower urinary tract symptoms; I25.10 Atherosclerotic heart disease of native coronary artery without angina pectoris; E66.01 Morbid (severe) obesity due to excess calories; I35.0 Nonrheumatic aortic (valve) stenosis; I48.0 Paroxysmal atrial fibrillation; R00.1 Bradycardia, unspecified; Z90.49 Acquired absence of other specified parts of digestive tract; Z95.0 Presence of cardiac pacemaker; Z95.2 Presence of prosthetic heart valve; Z79.899 Other long term (current) drug therapy; Z86.73 Personal history of transient ischemic attack (TIA), and cerebral infarction without residual deficits; Z87.891 Personal history of nicotine dependence; Z79.01 Long term (current) use of anticoagulants; Z68.38 Body mass index [BMI] 38.0-38.9, adult
CPT/HCPCS: 0240U; 33228; 36415; 36430; 70450; 71045; 72040; 76770; 78452; 80048; 80053; 81003; 81015; 82550; 82553; 82607; 83735; 83880; 84100; 84156; 84165; 84166; 84484; 85025; 85060; 85610; 85730; 86803; 86850; 86900; 86901; 93005; 93010; 93017; 93306; 94760; A9500; C1785; J0153; J0360; J0690; J1100; J1568; J1580; J2001; J2270; J2930; J3475; J8540; P9035

== ENCOUNTER 2020-05-07 13:44 | Emergency (ER) | payer MEDICARE, BC ==
--- NOTE | 2020-05-07 15:02 | RAD ---
RIGHT ANKLE THREE VIEWS: 05/07/20 HISTORY: Ankle pain. Vascular calcifications are noted. There is some mild arthritic changes of the ankle joint. There is no signs of fracture or dislocation. IMPRESSION: Arthritic changes of the ankle. No fracture. POS: HUMAIRA
--- NOTE | 2020-05-07 15:04 | RAD ---
PELVIS 1 VIEW: HISTORY: Trauma. COMPARISON: None. FINDINGS: Obturator rings are intact. Femoral heads and femoral necks are both intact. The trochanters are in tact. No facet joint widening. No pubic symphyseal widening. Moderate enthesopathic change along both iliac crests. IMPRESSION: No acute displaced pelvic fracture. IF the patient is acutely unable to bear weight, CT will be ryan mmended to evaluate for a nondisplaced fracture. POS: HOME
[2020-05-07] MEDS ORDERED: Ondansetron PF 4 MG/2 ML Vial ONE (15:32)
[2020-05-07] MEDS ORDERED: Morphine 4 MG/ML VIAL ONE (15:32)
[2020-05-07 16:20] LABS: Hemoglobin 12.1 g/dL (14.0-18.0); Mean Corpuscular HGB CONC 33.5 g/dL (32.0-36.0); Mean Corpuscular Hemoglobin 30.2 pg (27.0-31.0); Mean Corpuscular Volume 90.3 fL (78.0-98.0); Platelet Count 87 thou/uL (130-400); RBC Distribution Width 12.9 % (11.5-14.5); Red Blood Cell (RBC) Count 4.01 mill/uL (4.70-6.10); White Blood Cell (WBC) Count 1.7 thou/uL (4.8-10.8)
[2020-05-07 16:24] LABS: INR-International Normal Ratio 1.1; Prothrombin Time 14.3 sec (12.0-14.7)
[2020-05-07 16:38] LABS: ALT (SGPT) 45 U/L (8-55); AST (SGOT) 36 U/L (5-34); Albumin 3.1 g/dL (3.4-4.8); Alkaline Phosphatase 30 U/L (40-110); Anion Gap 12 mmol/L (10-20); BUN (Urea Nitrogen) 29 mg/dL (8.4-25.7); Bilirubin, Total 0.8 mg/dL (0.2-1.2); Calc. Creatinine Clearance 0 mL/min (70-130); Calcium 9.3 mg/dL (7.8-10.44); Carbon Dioxide 25 mmol/L (23-31); Chloride 106 mmol/L (98-107); Globulin 3.2 g/dL (2.4-3.5); Glucose 116 mg/dL (83-110); Potassium 4.6 mmol/L (3.5-5.1); Protein, Total 6.3 g/dL (5.8-8.1); Sodium 138 mmol/L (136-145)
[2020-05-07 16:51] LABS: Band 4 % (5-11); Lymphocytes 42 % (21-51); MDiff Complete? YES; Monocytes 38 % (0-10); Neutrophil 14 % (42-75); Platelet Morphology Comment Appears Decreased; Polychromasia SLIGHT = 2-3 cells (100X) (0-2/hpf)
[2020-05-07] MEDS ORDERED: HYDROcodone/Acetaminophen 5/325 mg Tablet ONE (17:30)
--- NOTE | 2020-05-07 18:19 | ULT ---
VENOUS DOPPLER ULTRASOUND OF THE RIGHT LOWER EXTREMITY: 05/07/20 HISTORY: Right lower extremity edema. TECHNIQUE: Myers scale ultrasound with color flow imaging and spectral Doppler analysis of the deep venous system of the right lower extremity was performed. FINDINGS: There is good flow, compression and augmentation noted in the right common femoral, femoral, deep fem oral, popliteal, posterior tibial and greater saphenous veins. IMPRESSION: No evidence of DVT in the right lower extremity. POS: CHAIA
== END 2020-05-07 17:50 | disposition home or self-care (01) ==
LOC: ERS 13:44
DX: M25.571 Pain in right ankle and joints of right foot (principal); R10.2 Pelvic and perineal pain; E78.5 Hyperlipidemia, unspecified; E78.00 Pure hypercholesterolemia, unspecified; I10 Essential (primary) hypertension; Z79.899 Other long term (current) drug therapy; Z86.73 Personal history of transient ischemic attack (TIA), and cerebral infarction without residual deficits; Z87.891 Personal history of nicotine dependence; W01.0XXA Fall on same level from slipping, tripping and stumbling without subsequent striking against object, initial encounter
CPT/HCPCS: 72170; 80053; 85025; 85610; 96374; 96375; J2270; J2405

== ENCOUNTER 2020-05-08 05:54 | Emergency (ER) | payer MEDICARE, BC ==
[2020-05-08] MEDS ORDERED: HYDROcodone/Acetaminophen 7.5/325 mg Tablet ONE (06:45)
== END 2020-05-08 09:15 | disposition home or self-care (01) ==
LOC: ERS 05:54
DX: M79.671 Pain in right foot (principal); I10 Essential (primary) hypertension; E78.5 Hyperlipidemia, unspecified; E78.00 Pure hypercholesterolemia, unspecified; Z86.73 Personal history of transient ischemic attack (TIA), and cerebral infarction without residual deficits; Z87.891 Personal history of nicotine dependence; Z79.899 Other long term (current) drug therapy
CPT/HCPCS: 99283